=== PATIENT | male | born 1970 | race Caucasian/White ===

== ENCOUNTER 2016-08-31 14:22 | Inpatient (IN) ==
[2016-08-31 14:49] LABS: Basophils % 0.6 %; Hematocrit 36.9 % (37.5-50.1); Hemoglobin 12.7 g/dL (12.9-16.9); Immature Granulocytes % 0.8 % (0-4); Lymphocytes # 0.8 K/mcL (0.6-4.6); Lymphocytes % 12.4 %; Mean Corpuscular HGB Conc 34.4 g/dL (31.6-35.5); Mean Corpuscular Hemoglobin 33.2 pg (28.0-33.3); Mean Corpuscular Volume 96.6 fL (83.0-100.0); Mean Platelet Volume 9.8 fL (9.4-12.4); Monocytes # 0.9 K/mcL (0.0-1.3); Monocytes % 14.4 %; Neutrophils # 4.5 K/mcL (1.6-8.9); Platelet Count 122 K/mcL (140-400); Red Blood Count 3.82 M/mcL (4.19-5.50); Red Cell Distribution Width 11.8 % (11.5-14.5); Segmented Neutrophils % 71.8 %
--- NOTE | 2016-08-31 14:51 | Emergency Department Note ---
Disposition Clinical Impression: Melena GI bleed Qualifiers: GI bleed type/associated pathology: melena Qualified Code(s): K92.1 - Melena Disposition: Admitted As Inpatient Condition: Fair Time of Disposition: 17:04 Chest Pain HPI - General Chief Complaint: ED Chest Pain Stated Complaint: CP,Rectal bleed Time Seen by Provider: 08/31/16 14:30 Source: patient Limitations: no limitations Vital Signs Reviewed: Yes Nursing Notes Reviewed: Yes - History of Present Illness HPI Narrative: Patient is a 45-year-old male brought to [facility] ED with a chief complaint of chest pain. States he has had cold-like symptoms with a cough for the last few days. States he has had chest pain for approximately one week. Denies any nausea, vomiting, fever or chills. States he also noted his stool being dark tarry today. Patient admits to frequent alcohol use drinking 12-15 beers per day, recreational marijuana use, smoker. No prior history of myocardial infarction and states his last stress test was several years ago. Pt complaint: chest pain Onset (ago): week(s) Duration: constant Onset: during rest, during exertion Pain Location: substernal, left chest, right chest Severity: severe Severity scale (1-10): 9 Quality: aching Pain Radiation: none Improves with: nothing Worsens with: nothing Associated symptoms: Denies: nausea, vomiting, dyspnea Treatments prior to arrival chest pain: none - Related Data Home Medications Medication Instructions Recorded Confirmed Aspirin Enteric Coated [Aspirin EC] 81 mg PO DAILY 05/15/15 08/31/16 Warfarin [Coumadin] 2 mg PO QAM 05/15/15 08/31/16 Multivitamin [Multivitamins] 1 cap PO QAM 08/31/16 08/31/16 Allergies Allergy/AdvReac Type Severity Reaction Status Date / Time Oxycodone Allergy Itching Verified 08/31/16 16:24 All systems ED: reviewed and negative except as stated. Chest Pain PMH - Past Medical History Medical history: Reports: other Surgical history: Reports: other Psychiatric history: Reports: no psych history - Social History Smoking Status: Current every day smoker Alcohol use: Reports: heavy Drug use: Reports: marijuana Physical Exam - General Limitations: no limitations General appearance: alert, in no apparent distress, cachectic - Head Head exam: atraumatic, normocephalic, normal inspection - Eye Eye exam: Present: normal appearance, PERRL, EOMI - ENT ENT exam: normal exam, normal oropharynx, mucous membranes moist - Neck Neck exam: Present: normal inspection, full ROM, trachea midline - Chest Chest inspection: Present: normal inspection, symmetric chest wall rise - Respiratory Respiratory exam: Present: normal lung sounds bilaterally - Cardiovascular Cardiovascular exam: Present: normal rhythm, tachycardia - Abdominal Exam Abdominal exam: Present: soft, tenderness. Absent: distention, guarding, rebound, rigidity Abdominal tenderness: Present: epigastrium - Extremities Exam Extremities exam: Present: normal inspection, full ROM. Absent: tenderness, pedal edema - Back Exam Back exam: Present: normal inspection - Neurological Exam Neurological exam: Present: alert, oriented X3 - Psychiatric Psychiatric exam: Present: normal affect, normal mood - Skin Skin exam: Present: warm, dry, intact, normal color Course Course Narrative: Patient seen and examined. Chest pain along with black tarry stools. Rectal exam was performed and Hemoccult sample sent down to lab. Cardiopulmonary workup initiated. We will also give patient a dose of Protonix. Suspect possible ulcer with upper GI bleed. - Reevaluation(s) Reevaluation #1: Lab called with a critical elevated lactic acid over 4. IV fluids started. Patient's Hemoccult also came back as positive. 80 mg total of IV Protonix ordered. We will admit to hospitalist for GI bleed. I spoke with hospitalist Dr. Myers who has accepted patient for admission. She also would like a Protonix drip started. This was ordered. we did have a misunderstanding regarding the endoscopist. I believed that the hospitalist had asked me to talk with Dr. Swartz which I did. However she did end up changing her mind and I misunderstood her. She ended up calling Dr. Adames for consult instead. Time: 17:03 Vital Signs Temperature 97.9 F 08/31/16 14:29 Pulse Rate 102 08/31/16 14:29 Respiratory Rate 18 08/31/16 14:29 Blood Pressure 164/101 08/31/16 14:29 O2 Sat by Pulse Oximetry 100 08/31/16 14:29 Temperature 97.9 F 08/31/16 14:29 Pulse Rate 113 08/31/16 16:36 Respiratory Rate 16 08/31/16 16:55 Blood Pressure 130/80 08/31/16 16:55 O2 Sat by Pulse Oximetry 97 08/31/16 16:36 Oxygen Delivery Oxygen Delivery Room Air Chest Pain - Medical Records Medical records reviewed: Yes I reviewed the patient's medical records. - Lab Data Lab results reviewed: Yes I reviewed the patient's lab results. Result diagrams: 08/31/16 14:35 08/31/16 14:35 Lab Results 08/31/16 08/31/16 08/31/16 Range/Units 14:35 14:35 14:35 WBC (4.3-11.1) K/mcL RBC (4.19-5.50) M/mcL Hgb (12.9-16.9) g/dL Hct (37.5-50.1) % MCV (83.0-100.0) fL MCH (28.0-33.3) pg MCHC (31.6-35.5) g/dL RDW (11.5-14.5) % Plt Count (140-400) K/mcL MPV (9.4-12.4) fL Immature Gran % (0-4) % Seg Neutrophils % % Lymphocytes % % Monocytes % % Eosinophils % % Basophils % % Neutrophils # (1.6-8.9) K/mcL Lymphocytes # (0.6-4.6) K/mcL Monocytes # (0.0-1.3) K/mcL Eosinophils # (0.0-0.6) K/mcL Basophils # (0.0-0.2) K/mcL PT 40.6 H (9.4-12.1) Seconds INR 3.6 APTT 51.0 H (26.0-36.0) Seconds Sodium 129 L (136-145) mEq/L Potassium 3.4 L (3.5-4.5) mEq/L Chloride 90 L (98-109) mEq/L Carbon Dioxide 26 (19-29) mEq/L BUN 16 (8-26) mg/dL Creatinine 0.72 (0.72-1.25) mg/dL Est GFR ( Amer) > 60 (> 60) Est GFR (Non-Af Amer) > 60 (> 60) BUN/Creatinine Ratio 22 (6-26) Glucose 115 H (70-99) mg/dL Calculated Osmolality 270 L (280-300) Lactic Acid (0.5-2.2) mmol/L Calcium 9.6 (8.6-10.8) mg/dL Total Bilirubin 1.4 H (0.2-1.2) mg/dL Direct Bilirubin 0.5 (0.0-0.5) mg/dL Indirect Bilirubin 0.9 (0.0-1.2) mg/dL AST 74 H (5-34) Units/L ALT 40 (0-55) Units/L Alkaline Phosphatase 61 (38-126) Units/L Troponin I (0-0.03) ng/mL Serum Total Protein 7.7 (6.0-8.3) g/dL Albumin 3.9 (3.5-5.0) g/dL Globulin 3.8 H (2.4-3.5) g/dL Albumin/Globulin Ratio 1.0 L (1.1-2.2) Lipase 15 (8-78) Units/L Stool Occult Blood (Negative) Blood Type O POSITIVE Antibody Screen NEGATIVE 08/31/16 08/31/16 08/31/16 Range/Units 14:35 14:35 14:35 WBC 6.2 (4.3-11.1) K/mcL RBC 3.82 L (4.19-5.50) M/mcL Hgb 12.7 L (12.9-16.9) g/dL Hct 36.9 L (37.5-50.1) % MCV 96.6 (83.0-100.0) fL MCH 33.2 (28.0-33.3) pg MCHC 34.4 (31.6-35.5) g/dL RDW 11.8 (11.5-14.5) % Plt Count 122 L (140-400) K/mcL MPV 9.8 (9.4-12.4) fL Immature Gran % 0.8 (0-4) % Seg Neutrophils % 71.8 % Lymphocytes % 12.4 % Monocytes % 14.4 % Eosinophils % 0.0 % Basophils % 0.6 % Neutrophils # 4.5 (1.6-8.9) K/mcL Lymphocytes # 0.8 (0.6-4.6) K/mcL Monocytes # 0.9 (0.0-1.3) K/mcL Eosinophils # 0.0 (0.0-0.6) K/mcL Basophils # 0.0 (0.0-0.2) K/mcL PT (9.4-12.1) Seconds INR APTT (26.0-36.0) Seconds Sodium (136-145) mEq/L Potassium (3.5-4.5) mEq/L Chloride (98-109) mEq/L Carbon Dioxide (19-29) mEq/L BUN (8-26) mg/dL Creatinine (0.72-1.25) mg/dL Est GFR ( Amer) (> 60) Est GFR (Non-Af Amer) (> 60) BUN/Creatinine Ratio (6-26) Glucose (70-99) mg/dL Calculated Osmolality (280-300) Lactic Acid 4.2 H* (0.5-2.2) mmol/L Calcium (8.6-10.8) mg/dL Total Bilirubin (0.2-1.2) mg/dL Direct Bilirubin (0.0-0.5) mg/dL Indirect Bilirubin (0.0-1.2) mg/dL AST (5-34) Units/L ALT (0-55) Units/L Alkaline Phosphatase (38-126) Units/L Troponin I 0.01 (0-0.03) ng/mL Serum Total Protein (6.0-8.3) g/dL Albumin (3.5-5.0) g/dL Globulin (2.4-3.5) g/dL Albumin/Globulin Ratio (1.1-2.2) Lipase (8-78) Units/L Stool Occult Blood (Negative) Blood Type Antibody Screen 08/31/16 Range/Units 14:43 WBC (4.3-11.1) K/mcL RBC (4.19-5.50) M/mcL Hgb (12.9-16.9) g/dL Hct (37.5-50.1) % MCV (83.0-100.0) fL MCH (28.0-33.3) pg MCHC (31.6-35.5) g/dL RDW (11.5-14.5) % Plt Count (140-400) K/mcL MPV (9.4-12.4) fL Immature Gran % (0-4) % Seg Neutrophils % % Lymphocytes % % Monocytes % % Eosinophils % % Basophils % % Neutrophils # (1.6-8.9) K/mcL Lymphocytes # (0.6-4.6) K/mcL Monocytes # (0.0-1.3) K/mcL Eosinophils # (0.0-0.6) K/mcL Basophils # (0.0-0.2) K/mcL PT (9.4-12.1) Seconds INR APTT (26.0-36.0) Seconds Sodium (136-145) mEq/L Potassium (3.5-4.5) mEq/L Chloride (98-109) mEq/L Carbon Dioxide (19-29) mEq/L BUN (8-26) mg/dL Creatinine (0.72-1.25) mg/dL Est GFR ( Amer) (> 60) Est GFR (Non-Af Amer) (> 60) BUN/Creatinine Ratio (6-26) Glucose (70-99) mg/dL Calculated Osmolality (280-300) Lactic Acid (0.5-2.2) mmol/L Calcium (8.6-10.8) mg/dL Total Bilirubin (0.2-1.2) mg/dL Direct Bilirubin (0.0-0.5) mg/dL Indirect Bilirubin (0.0-1.2) mg/dL AST (5-34) Units/L ALT (0-55) Units/L Alkaline Phosphatase (38-126) Units/L Troponin I (0-0.03) ng/mL Serum Total Protein (6.0-8.3) g/dL Albumin (3.5-5.0) g/dL Globulin (2.4-3.5) g/dL Albumin/Globulin Ratio (1.1-2.2) Lipase (8-78) Units/L Stool Occult Blood Positive A (Negative) Blood Type Antibody Screen - Radiology Data Radiology results reviewed: Yes I reviewed the patient's radiology results. - EKG Data EKG attestation: Yes I reviewed and interpreted this EKG. EKG results narrative: EKG done at 1430 shows normal sinus rhythm with a rate of [address] elevation or depression. There is an inverted T-wave in lead 3. Normal axis.
[2016-08-31] MEDS ORDERED: Pantoprazole 40 MG VIAL IVP ONE ×2 (14:55→15:23)
[2016-08-31 15:00] LABS: INR 3.6; Prothrombin Time 40.6 Seconds (9.4-12.1)
[2016-08-31] MEDS ORDERED: 0.9 % Sodium Chloride 1,000 ML IVC ONE (15:02)
[2016-08-31 15:05] LABS: Alanine Aminotransferase 40 Units/L (0-55); Albumin 3.9 g/dL (3.5-5.0); Alkaline Phosphatase 61 Units/L (38-126); Aspartate Amino Transferase 74 Units/L (5-34); BUN/Creatinine Ratio 22 (6-26); Bilirubin,Direct 0.5 mg/dL (0.0-0.5); Bilirubin,Indirect 0.9 mg/dL (0.0-1.2); Bilirubin,Total 1.4 mg/dL (0.2-1.2); Blood Urea Nitrogen 16 mg/dL (8-26); Calcium 9.6 mg/dL (8.6-10.8); Carbon Dioxide 26 mEq/L (19-29); Chloride 90 mEq/L (98-109); Globulin 3.8 g/dL (2.4-3.5); Glucose 115 mg/dL (70-99); Lipase 15 Units/L (8-78); Osmolality,Calculated 270 (280-300); Potassium 3.4 mEq/L (3.5-4.5); Sodium 129 mEq/L (136-145); Total Protein 7.7 g/dL (6.0-8.3); eGFR For African Americans > 60 (> 60); eGFR For Non-African Americans > 60 (> 60)
[2016-08-31] MEDS ORDERED: Pantoprazole 40 MG in 0.9 % Sodium Chloride Mini Bag 100 ML IVC SCH ×2 (16:00→17:30)
--- NOTE | 2016-08-31 16:17 | Emergency Department Note ---
Disposition Clinical Impression: Melena, GI bleed Disposition: Admitted As Inpatient Condition: Serious General Adult HPI - General Chief complaint: ED Chest Pain Stated complaint: CP,Rectal bleed Time Seen by Provider: 08/31/16 14:30 Source: patient Limitations: no limitations - History of Present Illness Pain Scale: 0 - Related Data Home Medications Medication Instructions Recorded Confirmed Aspirin Enteric Coated [Aspirin EC] 81 mg PO DAILY 05/15/15 08/31/16 Warfarin [Coumadin] 2 mg PO QAM 05/15/15 08/31/16 Multivitamin [Multivitamins] 1 cap PO QAM 08/31/16 08/31/16 Allergies Allergy/AdvReac Type Severity Reaction Status Date / Time Oxycodone Allergy Itching Verified 08/31/16 16:24 Past Medical History - Past Medical History Medical history: Reports: other Surgical history: Reports: other Psychiatric history: Reports: no psych history - Social History Smoking Status: Current every day smoker Smokeless Tobacco Status: No Alcohol use: Reports: heavy Drug use: Reports: marijuana Physical Exam - General Limitations: no limitations General appearance: alert, in no apparent distress, cachectic Course - Reevaluation(s) Reevaluation #1: I saw the patient with the resident, Dr. Kam. Patient presented with complaint of upper abdominal and lower chest discomfort and then also reports lack stools today. Although his chest pain was not reproducible to palpation, it was aggravated by having him rotate his body only on one side versus the other. Lungs sounded fine. Belly was nontender. Stool was guaiac positive. He is hemodynamically stable and has good vital signs except for tachycardia. Concern here is for upper GI bleed. We will be admitting the patient to the hospital for further evaluation. Time: 16:16 Vital Signs Temperature 97.9 F 08/31/16 14:29 Pulse Rate 102 08/31/16 14:29 Respiratory Rate 18 08/31/16 14:29 Blood Pressure 164/101 08/31/16 14:29 O2 Sat by Pulse Oximetry 100 08/31/16 14:29 Temperature 98.4 F 09/02/16 07:54 Pulse Rate 93 09/02/16 07:54 Respiratory Rate 17 09/02/16 07:54 Blood Pressure 136/83 09/02/16 07:54 O2 Sat by Pulse Oximetry 98 09/02/16 07:54 Oxygen Delivery Oxygen Delivery Room Air Medical Decision Making - Lab Data Result diagrams: 09/02/16 04:21 09/02/16 04:21 Lab Results 08/31/16 08/31/16 08/31/16 Range/Units 14:35 14:35 14:35 WBC (4.3-11.1) K/mcL RBC (4.19-5.50) M/mcL Hgb (12.9-16.9) g/dL Hct (37.5-50.1) % MCV (83.0-100.0) fL MCH (28.0-33.3) pg MCHC (31.6-35.5) g/dL RDW (11.5-14.5) % Plt Count (140-400) K/mcL MPV (9.4-12.4) fL Immature Gran % (0-4) % Seg Neutrophils % % Lymphocytes % % Monocytes % % Eosinophils % % Basophils % % Neutrophils # (1.6-8.9) K/mcL Lymphocytes # (0.6-4.6) K/mcL Monocytes # (0.0-1.3) K/mcL Eosinophils # (0.0-0.6) K/mcL Basophils # (0.0-0.2) K/mcL PT 40.6 H (9.4-12.1) Seconds INR 3.6 APTT 51.0 H (26.0-36.0) Seconds Sodium 129 L (136-145) mEq/L Potassium 3.4 L (3.5-4.5) mEq/L Chloride 90 L (98-109) mEq/L Carbon Dioxide 26 (19-29) mEq/L BUN 16 (8-26) mg/dL Creatinine 0.72 (0.72-1.25) mg/dL Est GFR ( Amer) > 60 (> 60) Est GFR (Non-Af Amer) > 60 (> 60) BUN/Creatinine Ratio 22 (6-26) Glucose 115 H (70-99) mg/dL Calculated Osmolality 270 L (280-300) Lactic Acid (0.5-2.2) mmol/L Calcium 9.6 (8.6-10.8) mg/dL Phosphorus 3.2 (2.3-4.7) mg/dL Magnesium 1.8 (1.6-2.6) mg/dL Total Bilirubin 1.4 H (0.2-1.2) mg/dL Direct Bilirubin 0.5 (0.0-0.5) mg/dL Indirect Bilirubin 0.9 (0.0-1.2) mg/dL AST 74 H (5-34) Units/L ALT 40 (0-55) Units/L Alkaline Phosphatase 61 (38-126) Units/L Troponin I (0-0.03) ng/mL Serum Total Protein 7.7 (6.0-8.3) g/dL Albumin 3.9 (3.5-5.0) g/dL Globulin 3.8 H (2.4-3.5) g/dL Albumin/Globulin Ratio 1.0 L (1.1-2.2) Amylase 42 (25-125) Units/L Lipase 15 (8-78) Units/L TSH 2.201 (0.350-4.840) mcIU/mL Stool Occult Blood (Negative) Hepatitis A IgM Ab (Nonreactive) Hep Bs Antigen (Nonreactive) Hep B Core IgM Ab (Nonreactive) Hepatitis C Ab Screen (Nonreactive) HIV Ag/Ab Combo Qual (Nonreactive) Blood Type O POSITIVE Antibody Screen NEGATIVE 08/31/16 08/31/16 08/31/16 Range/Units 14:35 14:35 14:35 WBC 6.2 (4.3-11.1) K/mcL RBC 3.82 L (4.19-5.50) M/mcL Hgb 12.7 L (12.9-16.9) g/dL Hct 36.9 L (37.5-50.1) % MCV 96.6 (83.0-100.0) fL MCH 33.2 (28.0-33.3) pg MCHC 34.4 (31.6-35.5) g/dL RDW 11.8 (11.5-14.5) % Plt Count 122 L (140-400) K/mcL MPV 9.8 (9.4-12.4) fL Immature Gran % 0.8 (0-4) % Seg Neutrophils % 71.8 % Lymphocytes % 12.4 % Monocytes % 14.4 % Eosinophils % 0.0 % Basophils % 0.6 % Neutrophils # 4.5 (1.6-8.9) K/mcL Lymphocytes # 0.8 (0.6-4.6) K/mcL Monocytes # 0.9 (0.0-1.3) K/mcL Eosinophils # 0.0 (0.0-0.6) K/mcL Basophils # 0.0 (0.0-0.2) K/mcL PT (9.4-12.1) Seconds INR APTT (26.0-36.0) Seconds Sodium (136-145) mEq/L Potassium (3.5-4.5) mEq/L Chloride (98-109) mEq/L Carbon Dioxide (19-29) mEq/L BUN (8-26) mg/dL Creatinine (0.72-1.25) mg/dL Est GFR ( Amer) (> 60) Est GFR (Non-Af Amer) (> 60) BUN/Creatinine Ratio (6-26) Glucose (70-99) mg/dL Calculated Osmolality (280-300) Lactic Acid 4.2 H* (0.5-2.2) mmol/L Calcium (8.6-10.8) mg/dL Phosphorus (2.3-4.7) mg/dL Magnesium (1.6-2.6) mg/dL Total Bilirubin (0.2-1.2) mg/dL Direct Bilirubin (0.0-0.5) mg/dL Indirect Bilirubin (0.0-1.2) mg/dL AST (5-34) Units/L ALT (0-55) Units/L Alkaline Phosphatase (38-126) Units/L Troponin I 0.01 (0-0.03) ng/mL Serum Total Protein (6.0-8.3) g/dL Albumin (3.5-5.0) g/dL Globulin (2.4-3.5) g/dL Albumin/Globulin Ratio (1.1-2.2) Amylase (25-125) Units/L Lipase (8-78) Units/L TSH (0.350-4.840) mcIU/mL Stool Occult Blood (Negative) Hepatitis A IgM Ab (Nonreactive) Hep Bs Antigen (Nonreactive) Hep B Core IgM Ab (Nonreactive) Hepatitis C Ab Screen (Nonreactive) HIV Ag/Ab Combo Qual (Nonreactive) Blood Type Antibody Screen 08/31/16 08/31/1608/31/17 Range/Units 14:35 14:35 14:43 WBC (4.3-11.1) K/mcL RBC (4.19-5.50) M/mcL Hgb (12.9-16.9) g/dL Hct (37.5-50.1) % MCV (83.0-100.0) fL MCH (28.0-33.3) pg MCHC (31.6-35.5) g/dL RDW (11.5-14.5) % Plt Count (140-400) K/mcL MPV (9.4-12.4) fL Immature Gran % (0-4) % Seg Neutrophils % % Lymphocytes % % Monocytes % % Eosinophils % % Basophils % % Neutrophils # (1.6-8.9) K/mcL Lymphocytes # (0.6-4.6) K/mcL Monocytes # (0.0-1.3) K/mcL Eosinophils # (0.0-0.6) K/mcL Basophils # (0.0-0.2) K/mcL PT (9.4-12.1) Seconds INR APTT (26.0-36.0) Seconds Sodium (136-145) mEq/L Potassium (3.5-4.5) mEq/L Chloride (98-109) mEq/L Carbon Dioxide (19-29) mEq/L BUN (8-26) mg/dL Creatinine (0.72-1.25) mg/dL Est GFR ( Amer) (> 60) Est GFR (Non-Af Amer) (> 60) BUN/Creatinine Ratio (6-26) Glucose (70-99) mg/dL Calculated Osmolality (280-300) Lactic Acid (0.5-2.2) mmol/L Calcium (8.6-10.8) mg/dL Phosphorus (2.3-4.7) mg/dL Magnesium (1.6-2.6) mg/dL Total Bilirubin (0.2-1.2) mg/dL Direct Bilirubin (0.0-0.5) mg/dL Indirect Bilirubin (0.0-1.2) mg/dL AST (5-34) Units/L ALT (0-55) Units/L Alkaline Phosphatase (38-126) Units/L Troponin I (0-0.03) ng/mL Serum Total Protein (6.0-8.3) g/dL Albumin (3.5-5.0) g/dL Globulin (2.4-3.5) g/dL Albumin/Globulin Ratio (1.1-2.2) Amylase (25-125) Units/L Lipase (8-78) Units/L TSH (0.350-4.840) mcIU/mL Stool Occult Blood Positive A (Negative) Hepatitis A IgM Ab Nonreactive (Nonreactive) Hep Bs Antigen Nonreactive (Nonreactive) Hep B Core IgM Ab Nonreactive (Nonreactive) Hepatitis C Ab Screen Nonreactive (Nonreactive) HIV Ag/Ab Combo Qual Nonreactive (Nonreactive) Blood Type Antibody Screen Attestation Statement - Attestation Attestation: I, Dr. Horowitz, examined this patient [id number] and my medical decision- making was reviewed with Dr. Kam, Resident Physician. I agree with the documented findings, disposition and treatment plan as described except to the extent set forth below. Please see my progress notes for details.
[2016-08-31] MEDS ORDERED: Ondansetron 4 MG/2 ML VIAL IVP PRN (17:06)
[2016-08-31] MEDS ORDERED: Naloxone 0.4 MG/ML INJ IVP PRN (17:06)
[2016-08-31] MEDS ORDERED: *HR* LORazepam 2 MG/ML VIAL IVP PRN ×3 (17:10)
--- NOTE | 2016-08-31 17:38 | Internal Med History&Physical ---
<Stephen Sears P - Last Filed: 08/31/16 18:39> Date of Encounter: 08/31/16 Internal Medicine - H&P: HPI History of present illness: Mr. Bell is a 45 year old male Internal Medicine - H&P: Meds Aspirin Enteric Coated [Aspirin EC] 81 mg PO DAILY 05/15/15 [History] Warfarin [Coumadin] 2 mg PO QAM 05/15/15 [History] Multivitamin [Multivitamins] 1 cap PO QAM 08/31/16 [History] Allergies Oxycodone Allergy (Verified 08/31/16 16:24) Itching All Systems PM: A 10-system review of systems was performed and is negative for pertinent findings except as documented above in the HPI. - Constitutional Vitals: Temp Pulse Resp BP Pulse Ox 98.6 F 89 16 145/90 92 L 08/31/16 17:20 08/31/16 17:20 08/31/16 17:20 08/31/16 17:20 08/31/16 17:20 Internal Med - H&P Results - Labs CBC & Chem 7: 08/31/16 14:35 08/31/16 14:35 - Attending Attestation I examined this patient and my medical decision-making was reviewed with the [employer]/PA/Advanced Practice Nurse/Resident Physician. I agree with the documented findings, disposition and treatment plan as described except to the extent set forth below. 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 Patients hgb is 12, INR is 3.6, +stool gauiac. Patient is on pantoprazole IV, IVF. Dr. Swartz is consulted. Patient was given 5mg Vitamin K IV for warfarin reversal. Check Hg/Hct and INR at 9. CBC CMP, PT/INR in morning. Qualifiers: GI bleed type/associated pathology: unspecified gastrointestinal hemorrhage type Qualified Code(s): K92.2 - Gastrointestinal hemorrhage, unspecified (2) Chronic alcoholism Current visit: Yes Status: Acute hx of drinking 12 beers a day. ON ciwa protocol and banana bag. Hx of getting unsafe tattoos and marijuana use. Will get HIV and hepatitis panel and urine drug screen. (3) DVT prophylaxis Current visit: Yes Status: Acute (4) Melena Current visit: Yes Status: Acute Internal Medicine - H&P: HPI Chief complaint: Chest pain Admitted From: Home Plans for Post Hospital Care: Home History of present illness: Mr. 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 CP is getting progressively worse over the week. Today he had two bouts of melena. He denies hemetemesis. Patients INR was 3.6 on admission. He reciebed pantoprazole and IVF in ER. Initial Hgb is 12. He denies BRB per rectum. He denies use of IV drugs. 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 Denies previous hx of HIV and hepatitis. Lipase, amylase, tsh, troponin wnl. Past Med Surg Social Fam HX - Past Medical History Medical history: other Psychiatric history: no psych history - Past Surgical History Surgical History: other - Social History Smoking Status: Current every day smoker Smokeless Tobacco Status: No Alcohol use: heavy Drug use: marijuana - Family History Father Living Status: (46) Hx Family Cardiac Disorders: Yes (PR) All Systems PM: A 10-system review of systems was performed and is negative for pertinent findings except as documented above in the HPI. - Constitutional Constitutional: chills, excessive sweating, fatigue, night sweats, weight loss, no fever(s) - EENT Eyes: no change in vision, no discharge, no pain, no photophobia Ears: no ear discharge, no ear pain, no tinnitus Nose, mouth and throat: nasal congestion, nasal discharge, no dysphagia, no neck pain, no sore throat - Cardiovascular Cardiovascular ROS IM: chest pain (substernal), diaphoresis, no dyspnea, no lightheadedness, no palpitations, no syncope - Respiratory Respiratory: no cough, no dyspnea, no wheezing, no excessive phlegm production - Gastrointestinal Gastrointestinal: change in stool character, melena, nausea, vomiting, no abdominal pain, no coffee ground emesis, no diarrhea, no hematemesis, no hematochezia - Genitourinary Genitourinary ROS male: no difficulty urinating, no dysuria, no urinary frequency - Musculoskeletal Musculoskeletal ROS IM: no numbness, no tingling - Integumentary Integumentary IM: no rash, no unusual bruising - Neurological Neurological ROS: no confusion, no convulsions, no focal weakness, no numbness, no tingling, no tremor(s) - Hematologic/Lymphatic Hematologic/Lymphatic: no easy bruising - Constitutional Vitals: Temp Pulse Resp BP Pulse Ox 98.6 F 89 16 145/90 92 L 08/31/16 17:20 08/31/16 17:20 08/31/16 17:20 08/31/16 17:20 08/31/16 17:20 General appearance: Present: A&O X 3, answers questions appropriately - Head Head exam: Present: atraumatic, normocephalic - Eye Eye exam: Present: EOMI, PERRL, conjuntiva pink, sclera anicteric - Neck Neck exam general surgery: Present: supple, trachea midline. Absent: lymphadenopathy - Respiratory Respiratory exam: Present: CTAB. Absent: accessory muscle use, rales, rhonchi, wheezes - Cardiovascular Cardiovascular exam: Present: RRR, +S1, +S2, tachycardia. Absent: diastolic murmur, gallop, rubs, systolic murmur - GI/Abdominal GI/Abdominal exam: Present: normal bowel sounds, soft, no peritoneal signs. Absent: distended, tenderness - Extremities Exam Extremities exam: Present: warm, radial pulses palpable and symetrical. Absent : calf tenderness, cyanotic, pedal edema Additional comments: Patient has Left lower extremity amputation above knee - Neurological Exam Neurological exam: Present: CN II-XII intact, oriented X3, no focal deficits. Absent: pronater drift, facial droop, speech deficit - Skin Skin exam: Present: erythema (upper chest and neck flushing ), intact Internal Med - H&P Results - Labs CBC & Chem 7: 08/31/16 14:35 08/31/16 14:35 - EKG Data EKG shows normal: sinus rhythm Rate: tachycardia - EKG Data Prior EKG available for review: no - Diagnostic Studies Chest x-ray Status: image reviewed by me
[2016-08-31 17:48] LABS: Amylase 42 Units/L (25-125); Magnesium 1.8 mg/dL (1.6-2.6); Phosphorous 3.2 mg/dL (2.3-4.7)
[2016-08-31 18:11] LABS: Thyroid Stimulating Hormone 2.201 mcIU/mL (0.350-4.840)
[2016-08-31] MEDS: 0.9 % Sodium Chloride 1,000 ML IVC SCH (19:00)
[2016-08-31 21:13] LABS: Hemoglobin 10.6 g/dL (12.9-16.9)
[2016-08-31 21:16] LABS: INR 2.7; Prothrombin Time 29.5 Seconds (9.4-12.1)
[2016-08-31 21:26] LABS: Amphetamine Screen,Urine Negative ng/mL (Cutoff=1000); Barbiturate Screen,Urine Negative ng/mL (Cutoff=200); Benzodiazepines Screen,Urine Negative ng/mL (Cutoff=200); Cannabinoid Screen,Urine Positive ng/mL (Cutoff = 50); Cocaine Screen,Urine Negative ng/mL (Cutoff= 300); Opiate Screen,Urine Negative ng/mL (Cutoff=300); Phencyclidine Screen,Urine Negative ng/mL (Cutoff=25)
[2016-09-01 05:17] LABS: INR 1.3; Prothrombin Time 14.3 Seconds (9.4-12.1)
[2016-09-01 05:18] LABS: Activated Partial Thrombo Time 34.6 Seconds (26.0-36.0)
[2016-09-01 05:45] LABS: Alanine Aminotransferase 27 Units/L (0-55); Albumin/Globulin Ratio 1.1 (1.1-2.2); Alkaline Phosphatase 43 Units/L (38-126); Aspartate Amino Transferase 49 Units/L (5-34); BUN/Creatinine Ratio 20 (6-26); Bilirubin,Total 1.7 mg/dL (0.2-1.2); Blood Urea Nitrogen 13 mg/dL (8-26); Calcium 8.8 mg/dL (8.6-10.8); Carbon Dioxide 25 mEq/L (19-29); Chloride 103 mEq/L (98-109); Chol/HDL Ratio 1.9 (0-4.9); Cholesterol 178 mg/dL (< 200); Globulin 2.8 g/dL (2.4-3.5); Glucose 83 mg/dL (70-99); HDL Cholesterol 92 mg/dL (40-59); LDL Cholesterol,Calculated 77 mg/dL (0-99); Osmolality,Calculated 281 (280-300); Potassium 3.3 mEq/L (3.5-4.5); Triglycerides 47 mg/dL (< 150); eGFR For African Americans > 60 (> 60); eGFR For Non-African Americans > 60 (> 60)
[2016-09-01 06:01] LABS: Albumin 3.1 g/dL (3.5-5.0); Basophils % 0.9 %; Eosinophils % 0.6 %; Hemoglobin 10.2 g/dL (12.9-16.9); Immature Granulocytes % 0.3 % (0-4); Lymphocytes # 0.9 K/mcL (0.6-4.6); Lymphocytes % 28.4 %; Mean Corpuscular HGB Conc 35.2 g/dL (31.6-35.5); Mean Corpuscular Hemoglobin 34.1 pg (28.0-33.3); Mean Platelet Volume 10.7 fL (9.4-12.4); Monocytes # 0.4 K/mcL (0.0-1.3); Monocytes % 12.7 %; Neutrophils # 1.9 K/mcL (1.6-8.9); Platelet Count 101 K/mcL (140-400); Red Blood Count 2.99 M/mcL (4.19-5.50); Red Cell Distribution Width 11.9 % (11.5-14.5); Segmented Neutrophils % 57.1 %; Sodium 136 mEq/L (136-145); Total Protein 5.9 g/dL (6.0-8.3)
[2016-09-01] MEDS: Pantoprazole 40 MG VIAL IVP SCH ×2 (06:36→18:00)
[2016-09-01] MEDS: 0.9 % Sodium Chloride 1,000 ML IVC SCH ×2 (06:43→21:29)
--- NOTE | 2016-09-01 09:07 | Internal Med Progress Note ---
<Hao Coffey - Last Filed: 09/01/16 13:34> Date of Encounter: 09/01/16 Time of Encounter: 09:05 - Assessment and plan (1) GI bleed Current Visit: Yes Status: Acute Assessment and plan: Overnight patient had 2 black tarry bowel movements. He underwent endoscopy today Which showed gastritis, esophagitis, irregular Z line. Biopsies were taken. Patient's hemoglobin and hematocrit has been stable overnight. Continue pantoprazole, IV fluids. Qualifiers: GI bleed type/associated pathology: unspecified gastrointestinal hemorrhage type Qualified Code(s): K92.2 - Gastrointestinal hemorrhage, unspecified (2) Chronic alcoholism Current Visit: Yes Status: Acute Assessment and plan: Continue serial protocol. Continue banana bag. (3) DVT prophylaxis Current Visit: Yes Status: Acute Assessment and plan: IPCs (4) Melena Current Visit: Yes Status: Acute Assessment and plan: Plan as above. (5) Supratherapeutic INR Current Visit: Yes Status: Acute Assessment and plan: Patient is on warfarin for multiple history of thrombosis in the left upper extremity. During admission he was supratherapeutic on his warfarin. This is her first by vitamin K. Today's INR is 1.3. - Subjective Interval history: Patient had 2 black tarry bowel movements overnight. His repeat hemoglobin decreased from 12 to 10.6 last night and this morning his hemoglobin is 10.2. He will undergo upper endoscopy today. He denies chest pain, shortness of breath. He admits to being nauseous. - Constitutional Vitals: Temp Pulse Resp BP Pulse Ox 98.0 F 89 16 134/79 98 09/01/16 07:53 09/01/16 07:53 09/01/16 07:53 09/01/16 07:53 09/01/16 07:53 General appearance: Present: A&O X 3, answers questions appropriately - Respiratory Respiratory exam: Present: CTAB. Absent: accessory muscle use, rales, rhonchi, wheezes - Cardiovascular Cardiovascular exam: Present: RRR, +S1, +S2. Absent: diastolic murmur, gallop, rubs, systolic murmur - GI/Abdominal GI/Abdominal exam: Present: normal bowel sounds, soft, no peritoneal signs. Absent: distended, tenderness - Extremities Exam Extremities exam: Present: warm, radial pulses palpable and symetrical. Absent : calf tenderness, cyanotic, pedal edema - Psychiatric Psychiatric exam: Present: anxious Internal Medicine: Result - Labs CBC & Chem 7: 09/01/16 04:42 09/01/16 04:42 Labs: Short CBC 08/31/16 09/01/16 Range/Units 20:34 04:42 WBC 3.2 L (4.3-11.1) K/mcL Hgb 10.6 L D 10.2 L (12.9-16.9) g/dL Hct 30.0 L 29.0 L (37.5-50.1) % Plt Count 101 L (140-400) K/mcL Neutrophils # 1.9 (1.6-8.9) K/mcL BMP 09/01/16 04:42 Sodium 136 D Potassium 3.3 L Chloride 103 Carbon Dioxide 25 BUN 13 Creatinine 0.65 L Glucose 83 Calcium 8.8 Cardiac Enzymes 08/31/16 09/01/16 Range/Units 20:34 04:42 Troponin I 0.01 0.01 (0-0.03) ng/mL Liver Function 09/01/16 Range/Units 04:42 Total Bilirubin 1.7 H (0.2-1.2) mg/dL AST 49 H (5-34) Units/L ALT 27 (0-55) Units/L Alkaline Phosphatase 43 (38-126) Units/L Albumin 3.1 L D (3.5-5.0) g/dL - ABG Interpretation ABG results: PT/INR, D-dimer PT 14.3 Seconds (9.4-12.1) H D 09/01/16 04:42 Consult Discharge Plan - Plan Referrals: Alyssia Villanueva, [facility] [employer] [Primary Care Provider] - <Stephen Sears - Last Filed: 09/01/16 18:35> - Constitutional Vitals: Temp Pulse Resp BP Pulse Ox 98.6 F 84 16 152/76 96 09/01/16 15:42 09/01/16 15:42 09/01/16 15:42 09/01/16 15:42 09/01/16 15:42 Internal Medicine: Result - Labs CBC & Chem 7: 09/01/16 04:42 09/01/16 04:42 Labs: Short CBC 08/31/16 09/01/16 Range/Units 20:34 04:42 WBC 3.2 L (4.3-11.1) K/mcL Hgb 10.6 L D 10.2 L (12.9-16.9) g/dL Hct 30.0 L 29.0 L (37.5-50.1) % Plt Count 101 L (140-400) K/mcL Neutrophils # 1.9 (1.6-8.9) K/mcL BMP 09/01/16 04:42 Sodium 136 D Potassium 3.3 L Chloride 103 Carbon Dioxide 25 BUN 13 Creatinine 0.65 L Glucose 83 Calcium 8.8 Cardiac Enzymes 08/31/16 09/01/16 Range/Units 20:34 04:42 Troponin I 0.01 0.01 (0-0.03) ng/mL Liver Function 09/01/16 Range/Units 04:42 Total Bilirubin 1.7 H (0.2-1.2) mg/dL AST 49 H (5-34) Units/L ALT 27 (0-55) Units/L Alkaline Phosphatase 43 (38-126) Units/L Albumin 3.1 L D (3.5-5.0) g/dL - ABG Interpretation ABG results: PT/INR, D-dimer PT 14.3 Seconds (9.4-12.1) H D 09/01/16 04:42 - Attending Attestation I examined this patient and my medical decision-making was reviewed with the DRIVER SUPERVISOR/PA/Advanced Practice Nurse/Resident Physician. I agree with the documented findings, disposition and treatment plan as described except to the extent set forth below. Surgery input appreciated and we will follow the recommendation.
[2016-09-01] MEDS: Thiamine (B-1) 100 MG in 0.9 % Sodium Chloride 50 ML IVPB SCH (10:07)
--- NOTE | 2016-09-01 10:37 | ECHO - Doppler Report ---
Echocardiogram Name: Michael Bell Date of Study: 09/01/2016 Date: 1970 Ht: 71.0 in Medical Record#: [id number] Age: 45 Wt: 105.0 lb Gender: Male BSA: 1.6 Order #: [id number] Location: [facility] Room #: 3B14 Reading Physician: Zacarias Gonzalez DO, NOE HUGHES FASNC Director Trade: Roman Rollins RN Ordering Physician: Hao Coffey DO Primary Physician: Alyssia Villanueva CNP Indications: Chest pain Impressions: LVEF 60-65%. Normal LV chamber size, wall thickness and function. Mild left ventricular diastolic dysfunction. Normal right ventricular structure and function. No evidence of pulmonary hypertension. No significant valvular dysfunction. Left Ventricular Wall Motion: Rest Echo Findings All wall segments showed normal motion. Findings: Study Quality * Technically adequate exam. ECG Findings * Normal sinus rhythm. Left Ventricle * LVEF 60-65%. * Normal LV chamber size, wall thickness and function. * Mild left ventricular diastolic dysfunction. Right Ventricle * Normal right ventricular structure and function. Left Atrium * Mildly dilated left atrium. Right Atrium * Normal right atrial size. Interatrial Septum * No evidence of PFO by color Doppler. Aortic Valve * Trileaflet aortic valve. * Mild aortic regurgitation. * No aortic stenosis. Mitral Valve * Mildly thickened mitral valve leaflets. * Trace mitral regurgitation. * No mitral stenosis. Tricuspid Valve * Normal tricuspid valve structure and function. * Trace tricuspid regurgitation. * No evidence of pulmonary hypertension. Pulmonic Valve * Normal pulmonic valve structure and function. * No pulmonic regurgitation. Aorta * Normally sized aortic root. Pericardium * The pericardium appears normal. IVC * Normal IVC dimensions and inspiratory collapse. Pulmonary Artery * Normal visualized portions of the main pulmonary artery. History History of Smoking Years 30 Packs 1.5 Family History of CAD Measurements: BP: 134/ 79 2D Normal Values RVIDd: 2.20 cm <2.7 cm IVSd: 1.00 cm 0.6 - 1.0 cm LVIDd: 4.70 cm 3.7 - 5.6 cm LVPWd: 1.00 cm 0.6 - 1.1 cm LVIDs: 2.70 cm 1.5 - 3.6 cm LA: 2.90 cm 2.0 - 4.0cm %FS: 42.60 cm >25 % LVOT Diam: 2.00 cm LA volume: 39 Mitral Valve Peak E:.57 m/sec Peak A:.67 m/sec E/A Ratio:0.9 Peak E' Lat Claus:13.1 cm/s Peak E' Med Claus:9.46 cm/s E/E' Lat Ratio:4.4 E/E' Med Ratio:6.1 Aortic Valve AI pressure Half-time: 515.00 msec Tricuspid Valve TV Regurg Peak Grad: 18.00mmHg TV Regurg Peak Claus: 2.10m/sec Updated by Zacarias Gonzalez DO, SAUL, BERENICE LIU on 09/01/2016 10:34:03 AM electronically signed on 09/01/2016 10:34:36 AM with status of Final Wall Motion Ramirez: 1=Normal, 2=Hypokinesis, 3=Akinesis, 4=Dyskinesis, 5=Aneurysmal, 6=Hyperkinetic, X=Not Visualized (Blank)=Missing
[2016-09-01 11:15] LABS: Hepatitis A Antibody IgM Nonreactive (Nonreactive); Hepatitis B Core IgM Nonreactive (Nonreactive); Hepatitis B Surface Antigen Nonreactive (Nonreactive); Hepatitis C Virus Antibody Nonreactive (Nonreactive)
--- NOTE | 2016-09-01 12:37 | General Surgery Consult Note ---
Date of Encounter: 09/01/16 Time of Encounter: 12:20 History of Present Illness Consult date: 09/01/16 Requesting physician: Hao Coffey History of present illness: 45 yo admitted for further and care after presenting to the [facility] ED with a one- week history of chest pain. No associated nausea, vomiting, fevers, or chills reported. Patient has noted that he has had black tarry stools for the past several days. He has a significant history of alcohol abuse, tobacco abuse and recreational marijuana use. 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 PT was 40.6, INR was 3.6 consistent with a supratherapeutic Coumadin level. Past medical history: Chronic anticoagulation due to left upper extremity screening ischemia; status post left above-knee amputation The patient denies any history of hypertension, diabetes, cardiac, renal, or pulmonary disease Surgical history: Multiple procedures on the left upper extremity as described in the history of present illness; left above-knee amputation Allergies: Percocet Medications: Aspirin 81 mg by mouth daily Coumadin 2 mg by mouth every morning Multivitamin 1 by mouth daily Social history: Smoker, one half packs a day for greater than 30 years; 12-16 beers daily - also for a prolonged period of time; recreational marijuana use ( almost daily) Physical examination: Thin male who appears older than his stated age. He is presently in no acute distress, resting comfortably in his hospital He is mildly icteric; he has multiple cutaneous tattoos. The patient has been afebrile since admission, currently 98.8; pulse 87, respirations 16, blood pressure 168/86. Lungs: Clear to auscultation though diminished bibasilar breath sounds are noted Cardiac: Regular rate, no appreciable murmurs Abdomen: Soft, nondistended, nontender. No obvious intra-abdominal masses. Impression: 45-year-old male admitted after presenting to the [facility] ED with a one -week history of chest pain and melena. Initial Hgb/Hct 12.7/36.9 with repeat decreased to 10.6/30.0 Chronic anticoagulation with supra therapeutic levels. The anticoagulation has been reversed/improved to 14.3/1.3. Significant history alcohol abuse - esophageal varicies are a potential etiology for the suspected UGI bleed. Significant history tobacco abuse Plan: EGD to assess upper GI tract Discussed procedure with patient and his sister, who was in attendance at bedside. Risks include hemorrhage, infection, aspiration, cramping abdominal pain, bloating and perforation. Variceal bleed can be life- threatening. Resources to treat a variceal bleed are extremely limited at [facility]. Should they be diagnosed or bleeding is determined to be a result of esophageal varicies - transfer to a [facility] may become necessary. Past Med Surg Social Fam HX - Past Medical History Medical history: other Psychiatric history: no psych history - Past Surgical History Surgical History: other - Social History Smoking Status: Current every day smoker Smokeless Tobacco Status: No Alcohol use: heavy Drug use: marijuana - Family History Father Living Status: (46) Hx Family Cardiac Disorders: Yes ([place]) Medications and Allergies Aspirin Enteric Coated [Aspirin EC] 81 mg PO DAILY 05/15/15 [History] Warfarin [Coumadin] 2 mg PO QAM 05/15/15 [History] Multivitamin [Multivitamins] 1 cap PO QAM 08/31/16 [History] Allergies Oxycodone Allergy (Verified 08/31/16 16:24) Itching Review of Systems All systems PM: A 10-system review of systems was performed and is negative for pertinent findings except as documented above in the HPI. General Surgery Exam Initial Vital Signs Temp Pulse Resp BP Pulse Ox 97.9 F 102 18 164/101 100 08/31/16 14:29 08/31/16 14:29 08/31/16 14:29 08/31/16 14:29 08/31/16 14:29 Exam Initial Vital Signs Temp Pulse Resp BP Pulse Ox 97.9 F 102 18 164/101 100 08/31/16 14:29 08/31/16 14:29 08/31/16 14:29 08/31/16 14:29 08/31/16 14:29 Results - Labs 09/01/16 04:42 09/01/16 04:42 Abnormal lab results WBC 3.2 K/mcL (4.3-11.1) L 09/01/16 04:42 RBC 2.99 M/mcL (4.19-5.50) L 09/01/16 04:42 Hgb 10.2 g/dL (12.9-16.9) L 09/01/16 04:42 Hct 29.0 % (37.5-50.1) L 09/01/16 04:42 MCH 34.1 pg (28.0-33.3) H 09/01/16 04:42 Plt Count 101 K/mcL (140-400) L 09/01/16 04:42 PT 14.3 Seconds (9.4-12.1) H D 09/01/16 04:42 Potassium 3.3 mEq/L (3.5-4.5) L 09/01/16 04:42 Creatinine 0.65 mg/dL (0.72-1.25) L 09/01/16 04:42 Lactic Acid 4.2 mmol/L (0.5-2.2) H* 08/31/16 14:35 Total Bilirubin 1.7 mg/dL (0.2-1.2) H 09/01/16 04:42 AST 49 Units/L (5-34) H 09/01/16 04:42 Serum Total Protein 5.9 g/dL (6.0-8.3) L D 09/01/16 04:42 Albumin 3.1 g/dL (3.5-5.0) L D 09/01/16 04:42 HDL Cholesterol 92 mg/dL (40-59) H 09/01/16 04:42 Stool Occult Blood Positive (Negative) A 08/31/16 14:43 U Marijuana (THC) Screen Positive ng/mL (Cutoff = 50) H 08/31/16 21:00 Diabetes panel 09/01/16 Range/Units 04:42 Sodium 136 D (136-145) mEq/L Potassium 3.3 L (3.5-4.5) mEq/L Chloride 103 (98-109) mEq/L Carbon Dioxide 25 (19-29) mEq/L BUN 13 (8-26) mg/dL Creatinine 0.65 L (0.72-1.25) mg/dL Glucose 83 (70-99) mg/dL Calcium 8.8 (8.6-10.8) mg/dL AST 49 H (5-34) Units/L ALT 27 (0-55) Units/L Alkaline Phosphatase 43 (38-126) Units/L Albumin 3.1 L D (3.5-5.0) g/dL Triglycerides 47 (< 150) mg/dL HDL Cholesterol 92 H (40-59) mg/dL Calcium panel 09/01/16 Range/Units 04:42 Calcium 8.8 (8.6-10.8) mg/dL Albumin 3.1 L D (3.5-5.0) g/dL Pituitary panel 09/01/16 Range/Units 04:42 Sodium 136 D (136-145) mEq/L Potassium 3.3 L (3.5-4.5) mEq/L Chloride 103 (98-109) mEq/L Carbon Dioxide 25 (19-29) mEq/L BUN 13 (8-26) mg/dL Creatinine 0.65 L (0.72-1.25) mg/dL Glucose 83 (70-99) mg/dL Calcium 8.8 (8.6-10.8) mg/dL Adrenal panel 09/01/16 Range/Units 04:42 Sodium 136 D (136-145) mEq/L Potassium 3.3 L (3.5-4.5) mEq/L Chloride 103 (98-109) mEq/L Carbon Dioxide 25 (19-29) mEq/L BUN 13 (8-26) mg/dL Creatinine 0.65 L (0.72-1.25) mg/dL Glucose 83 (70-99) mg/dL Calcium 8.8 (8.6-10.8) mg/dL Total Bilirubin 1.7 H (0.2-1.2) mg/dL AST 49 H (5-34) Units/L ALT 27 (0-55) Units/L Alkaline Phosphatase 43 (38-126) Units/L Albumin 3.1 L D (3.5-5.0) g/dL All other labs normal. Consult Discharge Plan - Plan Referrals: Alyssia Villanueva, [facility] [Primary Care Provider] -
[2016-09-01] MEDS ORDERED: Simethicone 40 MG/0.6 ML MLS IR ONE (12:49)
[2016-09-01] MEDS ORDERED: Tetracaine/Benzocaine/Butamben 200MG/SPRAY (100SPY/BOT) MM ONE (12:49)
[2016-09-01] MEDS ORDERED: *HR* Midazolam HCl 5 MG/5 ML VIAL IVP ONE (12:52)
[2016-09-01] MEDS ORDERED: *HR* FentaNYL (PF) 100 MCG/2 ML VIAL ONE (12:53)
[2016-09-01] MEDS: *HR* FentaNYL (PF) 100 MCG/2 ML VIAL IVP PRN ×2 (13:01→13:05)
[2016-09-01] MEDS: *HR* Midazolam HCl 5 MG/5 ML VIAL IVP PRN ×2 (13:01→13:05)
--- NOTE | 2016-09-01 16:33 | Electrocardiograph Report ---
[facility] Test Date: 2016-08-31 Pat Name: Michael Bell Department: 105 Room: 3B14 Gender: M Composing Machine Operator: [id number] : 1970 Requested By: Eliana Kam Order Number: [id number] Reading MD: Zacarias Gonzalez DO Measurements Intervals [place] Rate: 90 P: 40 CT: 119 QRS: 70 QRSD: 97 T: 2 QT: 330 QTc: 378 Interpretive Statements Sinus rhythm Inferior ST-T changes possibly due to ischemia Baseline artifact Electronically Signed On 09-01-16 16:32:09 EST by Zacarias Gonzalez DO
[2016-09-02 04:36] LABS: Hemoglobin 9.8 g/dL (12.9-16.9); Immature Granulocytes % 0.3 % (0-4)
[2016-09-02 04:38] LABS: Basophils % 1.1 %; Eosinophils # 0.1 K/mcL (0.0-0.6); Hematocrit 28.5 % (37.5-50.1); Immature Platelets 6.2 % (1.1-6.1); Lymphocytes % 39.9 %; Mean Corpuscular HGB Conc 34.4 g/dL (31.6-35.5); Mean Platelet Volume 10.2 fL (9.4-12.4); Monocytes # 0.4 K/mcL (0.0-1.3); Monocytes % 10.5 %; Neutrophils # 1.6 K/mcL (1.6-8.9); Platelet Count 102 K/mcL (140-400); Red Blood Count 2.88 M/mcL (4.19-5.50); Red Cell Distribution Width 11.6 % (11.5-14.5); Segmented Neutrophils % 45.2 %
[2016-09-02 04:55] LABS: BUN/Creatinine Ratio 7 (6-26); Calcium 8.5 mg/dL (8.6-10.8); Carbon Dioxide 29 mEq/L (19-29); Chloride 98 mEq/L (98-109); Glucose 102 mg/dL (70-99); Osmolality,Calculated 275 (280-300); Potassium 3.1 mEq/L (3.5-4.5); Sodium 134 mEq/L (136-145); eGFR For African Americans > 60 (> 60); eGFR For Non-African Americans > 60 (> 60)
[2016-09-02 04:59] LABS: Blood Urea Nitrogen 4 mg/dL (8-26)
[2016-09-02 05:00] LABS: Lymphocytes # 1.4 K/mcL (0.6-4.6)
[2016-09-02] MEDS: Pantoprazole 40 MG VIAL IVP SCH (06:12)
[2016-09-02] MEDS: 0.9 % Sodium Chloride 1,000 ML IVC SCH (07:39)
[2016-09-02 07:55] VITALS: BP 136/83
[2016-09-02] MEDS: Thiamine (B-1) 100 MG in 0.9 % Sodium Chloride 50 ML IVPB SCH (07:55)
--- NOTE | 2016-09-02 09:53 | Discharge Summary ---
<Hao Coffey - Last Filed: 09/02/16 09:51> Date of Encounter: 09/02/16 Time of Encounter: 09:51 - Discharge Diagnosis (1) GI bleed Priority: Primary Status: Acute Qualifiers: GI bleed type/associated pathology: unspecified gastrointestinal hemorrhage type Qualified Code(s): K92.2 - Gastrointestinal hemorrhage, unspecified (2) Chronic alcoholism Priority: Secondary Status: Acute (3) DVT prophylaxis Priority: Secondary Status: Acute (4) Melena Priority: Secondary Status: Acute (5) Supratherapeutic INR Priority: Secondary Status: Acute (6) Gastritis Priority: Secondary Status: Acute Qualifiers: Gastritis type: alcoholic Chronicity: unspecified Gastritis bleeding: without bleeding Qualified Code(s): K29.20 - Alcoholic gastritis without bleeding (7) Esophagitis Priority: Secondary Status: Acute (8) Irregular Z line of esophagus Priority: Secondary Status: Acute - Discharge Medications Home Medications: Aspirin Enteric Coated [Aspirin EC] 81 mg PO DAILY 05/15/15 [History] Warfarin [Coumadin] 2 mg PO QAM 05/15/15 [History] Multivitamin [Multivitamins] 1 cap PO QAM 08/31/16 [History] Allergies/Adverse Reactions: Allergies Oxycodone Allergy (Verified 08/31/16 16:24) Itching Date of admission: 08/31/16 18:39 Primary care physician: Alyssia Villanueva CNP Consults: Surgery Dr. Swartz Discharging clinician: Hao Coffey Anticipated date of discharge: 09/02/16 - Patient Status Disposition: Left Against Medical Advice Condition: Serious Functional capacity at discharge: independent ambulation Overall status at discharge: patient is not back to baseline - Discharge Instructions Follow Up With: Alyssia Villanueva CNP [Primary Care Provider] - - Diet and Activity Activity: increase activity as tolerated Diet: advance to your usual diet Hospital course: Mr. Bell is a 45 year old male hx of chronic alcoholism, LUE ischemia 2nd to clots anticoagulated on warfarin, left above knee amputation, presented with cc of chest pain of one week that is like a discomfort, substernal, nonradiating denies alleviating and relieving factors, admits to nasuea, vomiting, chills, diaphoresis. CP had gotten progressively worse over the last week week. The morning of admission, he had two bouts of melena. He denies hemetemesis. Patients INR was 3.6 on admission. He received pantoprazole and IVF in ER. Initial Hgb is 12. He denied BRB per rectum. He denied use of IV drugs. 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 Denies previous hx of HIV and hepatitis. Lipase, amylase, tsh, troponin wnl. Patient was admitted and continued on IV pantoprazole,IVF. Surgery was consulted for evaluation of UGI bleed. They recommended reversal of warfarin before any intervention could be done. Patient was given 5mg Vitamin K IV. He was started on CIWA protocol,bannana bag and also hepatitis, HIV and urine drug screen were ordered. Over the first night he had two additional black tarry bowel movements. His Hgb dropped from 12.4 to 10.2. Furthermore, hepatitis and UDS were negative. His INR was 1.3. He underwent upper GI and was found to have gastritis, esophagitis, and irregular Z -line . There was no active bleed found, no evidence of esophageal varicies. He was started back on regular diet which he tolerated. The 2nd morning patients hgb decreased to 9.8. He had additional black tarry bowel movements. He denied chest pain, sob, abdominal pain. Around 9:30AM, Patient decided to leave AMA. He refused further treatment. He was explained that he still may be bleeding from his UGI system. IF he went outpatient and restarted his warfarin his bleeding may worsen and be catastrophic to his health. Patient still decided to leave AMA. - Time Spent with Patient Total time spent providing and/or coordinating discharge services: - Constitutional Vitals: Temp Pulse Resp BP Pulse Ox 98.4 F 93 17 136/83 98 09/02/16 07:54 09/02/16 07:54 09/02/16 07:54 09/02/16 07:54 09/02/16 07:54 General appearance: Present: A&O X 3, answers questions appropriately - Head Head exam: Present: atraumatic, normocephalic - Eye Eye exam: Present: EOMI, PERRL, conjuntiva pink, sclera anicteric - Neck Neck exam general surgery: Present: supple, trachea midline. Absent: lymphadenopathy - Respiratory Respiratory exam: Present: CTAB. Absent: accessory muscle use, rales, rhonchi, wheezes - Cardiovascular Cardiovascular exam: Present: RRR, +S1, +S2. Absent: diastolic murmur, gallop, rubs, systolic murmur - GI/Abdominal GI/Abdominal exam: Present: normal bowel sounds, soft, no peritoneal signs. Absent: distended, tenderness - Extremities Exam Extremities exam: Present: warm, radial pulses palpable and symetrical. Absent : calf tenderness, cyanotic, pedal edema Additional comments: LLE abve knee amputation. - Neurological Exam Neurological exam: Present: CN II-XII intact, oriented X3, no focal deficits. Absent: pronater drift, facial droop, speech deficit - Skin Skin exam: Present: dry, intact <Renu,Stephen P - Last Filed: 09/02/16 18:00> Date of admission: 08/31/16 18:39 Primary care physician: Alyssia Villanueva CNP Hospital course: Mr. Bell is a 45 year old male - Time Spent with Patient Total time spent providing and/or coordinating discharge services: - Constitutional Vitals: Temp Pulse Resp BP Pulse Ox 98.4 F 93 17 136/83 98 09/02/16 07:54 09/02/16 07:54 09/02/16 07:54 09/02/16 07:54 09/02/16 07:54 - Attending Attestation I examined this patient and my medical decision-making was reviewed with the RENDERER/PA/Advanced Practice Nurse/Resident Physician. I agree with the documented findings, disposition and treatment plan as described except to the extent set forth below. Discussed with the patient at length regarding further treatment in the hospital for his melena. Patient insisted to go home. Patient still had black-colored stool ongoing. Noted that patient's hemoglobin has been persistently low. Patient refused to stay in the hospital. Patient understood that he is going home and possible complications secondary to the underlying GI bleed. Patient is willing to follow up with PCP as outpatient. I discussed his case with surgery. I updated surgeon who did an endoscopy about AMA discharge.
== END 2016-09-02 10:44 | disposition left against medical advice (07) | DRG 378 ==
LOC: 3BNU 14:22 → EMEROO 14:22 → 3BNU 17:06
PROVIDERS: ADMIT Internal Medicine; ATTEND Nurse Practitioner Family
PROC: ENDOEBX (2016-09-01 13:00)

== ENCOUNTER 2018-05-22 19:09 | Inpatient (IN) ==
[2018-05-22] MEDS ORDERED: 0.9 % Sodium Chloride 1,000 ML IVC ONE (19:31)
[2018-05-22] MEDS ORDERED: Folic Acid 1 MG in D5% in Water 50 ML IVPB ONE (19:44)
[2018-05-22] MEDS ORDERED: Thiamine (B-1) 100 MG in D5% in Water 50 ML IVPB ONE (19:44)
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
[2018-05-22] MEDS ORDERED: GI Cocktail 40 ML EACH PO ONE (19:56)
--- NOTE | 2018-05-22 20:10 | Emergency Department Note ---
Disposition Clinical Impression: Dehydration, Hyponatremia, Chronic anemia, Left-sided epistaxis Disposition: Admitted As Inpatient Condition: Good Referrals: Alyssia Villanueva LEAD QA ANALYST [Primary Care Provider] - Forms: ED Satisfaction Letter General Adult HPI - General Chief complaint: ED Dizziness Stated complaint: "Near Syncope/Not Feeling Right/Here Earlier" Time Seen by Provider: 05/22/18 19:26 Source: patient, family Nursing Notes Reviewed: Yes Vital Signs Reviewed: Yes - History of Present Illness Pain Scale: 0 - Related Data Home Medications Medication Instructions Recorded Confirmed Ferrous Sulfate [Iron] 325 mg PO DAILY 05/22/18 05/22/18 Losartan [Cozaar] 25 mg PO DAILY 05/22/18 05/22/18 Multivitamin [One Daily Essential] 1 tab PO DAILY 05/22/18 05/22/18 Pantoprazole Sodium [Protonix] 40 mg PO DAILY 05/22/18 05/22/18 Warfarin Sodium 4 mg PO MOTH 05/22/18 05/22/18 Warfarin [Coumadin] 2 mg PO SUTUWEFRSA 05/22/18 05/22/18 Allergies Allergy/AdvReac Type Severity Reaction Status Date / Time Oxycodone Allergy Itching Verified 05/22/18 10:57 Past Medical History - Past Medical History Medical history: Reports: DVT, hypertension, other Surgical history: Reports: other Psychiatric history: Reports: no psych history - Social History Smoking Status: Current every day smoker Smokeless Tobacco Status: No Alcohol use: Reports: heavy, recent Drug use: Reports: marijuana Physical Exam - General General appearance: alert, in no apparent distress Course Vital Signs Temperature 98.1 F 05/22/18 19:13 Pulse Rate 138 05/22/18 19:13 Respiratory Rate 16 05/22/18 19:13 Blood Pressure 123/65 05/22/18 19:13 O2 Sat by Pulse Oximetry 99 05/22/18 19:13 Temperature 98.1 F 05/22/18 19:13 Pulse Rate 104 05/22/18 20:42 Respiratory Rate 16 05/22/18 20:42 Blood Pressure 144/93 05/22/18 20:42 O2 Sat by Pulse Oximetry 97 05/22/18 20:42 Oxygen Delivery Oxygen Delivery Room Air Medical Decision Making - Medical Records Medical records reviewed: Yes I reviewed the patient's medical records. - Lab Data Lab results reviewed: Yes I reviewed the patient's lab results. Result diagrams: 05/22/18 19:34 Lab Results 05/22/18 Range/Units 19:34 Sodium 126 L (136-145) mEq/L Potassium 3.2 L (3.5-5.1) mEq/L Chloride 83 L (98-107) mEq/L Carbon Dioxide 19 L (23-29) mEq/L BUN 26 H (6-20) mg/dL Creatinine 0.71 (0.70-1.30) mg/dL Est GFR ( Amer) > 60 (> 60) Est GFR (Non-Af Amer) > 60 (> 60) BUN/Creatinine Ratio 37 H (6-26) Glucose 137 H (70-105) mg/dL Calculated Osmolality 269 L (280-300) Calcium 10.0 (8.6-10.3) mg/dL Magnesium 2.2 (1.6-2.6) mg/dL - Radiology Data Radiology results reviewed: Yes I reviewed the patient's radiology results. Chest X-Ray 05/22/18 19:48 IMPRESSION: No acute cardiopulmonary process. D/ / 05/22/2018 20:25:08 Seferino Callahan MD / ben Interpreting Provider: Seferino Callahan MD - EKG Data EKG #1 EKG attestation: Yes I reviewed and interpreted this EKG. EKG results narrative: EKG shows a sinus tachycardia with ventricular rate of 131. Poor technical quality tracing. No definite acute ST segment elevation or depression noted. No ectopy. Attestation Statement - Attestation Attestation: I, Tyler Bañuelos MD, personally evaluated this patient and discussed their management with the resident physician. I reviewed the resident's note and agree with the documented findings, medical decision making, and plan of care. 47-year-old male presents to the emergency department with a complaint of feeling weak and dizzy and lightheaded. He lost his balance and had to lean against a wall today and then with help was unable to stand on his on. No actual syncope. He also has been shaky and diaphoretic. Patient is on Coumadin. This is his third ED visit in less than 48 hours. He was seen here early yesterday morning for a nosebleed. He was not actively bleeding at the time. He was advised to hold his Coumadin which he did. He was seen here again earlier today because of persistent nosebleed. A nasal packing was placed on the left. He states he went home from here about 2:30 PM and has continued to have oozing of blood but no heavy bleeding. Since about 5:30 PM he has felt more weak and dizzy and lightheaded. Mild shortness of breath. No chest pain. Patient is alcoholic and drinks 12-15 beers per day. On examination patient is a well-developed thin male in no acute distress. He is alert and oriented 3. There is no cyanosis or diaphoresis. He has a left nasal packing in place. The packing is saturated with blood but is not dripping or oozing blood. Chest is nontender to palpation. Breath sounds are decreased but clear and equal bilaterally. Heart is tachycardic and regular. Abdomen soft and nontender with normal bowel sounds. Labs reviewed. EKG shows sinus tachycardia. No acute abnormality on chest x- ray. The hospitalist, Dr. Ríos, was consulted and accepted admission of the patient.
[2018-05-22 20:15] LABS: BUN/Creatinine Ratio 37 (6-26); Blood Urea Nitrogen 26 mg/dL (6-20); Carbon Dioxide 19 mEq/L (23-29); Chloride 83 mEq/L (98-107); Glucose 137 mg/dL (70-105); Magnesium 2.2 mg/dL (1.6-2.6); Osmolality,Calculated 269 (280-300); Potassium 3.2 mEq/L (3.5-5.1); Sodium 126 mEq/L (136-145); eGFR For Non-African Americans > 60 (> 60)
[2018-05-22 21:40] LABS: Ethanol 12 mg/dL (Less than 10)
[2018-05-22] MEDS ORDERED: Potassium Chloride Elixir 20 MEQ/15 ML UDC PO ONE (21:53)
[2018-05-22] MEDS ORDERED: *HR* LORazepam 2 MG/ML VIAL IVP PRN (21:53)
--- NOTE | 2018-05-22 22:22 | Internal Med History&Physical ---
Date of Encounter: 05/22/18 Time of Encounter: 22:22 Internal Medicine - H&P: HPI Chief complaint: Dizziness Admitted From: Home Plans for Post Hospital Care: Home History of present illness: Michael Bell is 47-year-old male with medical history significant for chronic alcoholism, multiple clots left upper extremity status post procedural intervention 5 times in the left upper extremity (thromboembolectomy), no history of lower extremity clot, status post left [id number] amputation due to an accident when he was a child, chronic anticoagulation with warfarin with history of GI bleed. He presents now to the ER for the third time in 2 days, initially coming in for epistaxis twice requiring nasal packing and topical spray. He was also advised to hold his warfarin. He presents now complaining of dizziness, lightheadedness and generalized fatigue since his last visit in the morning. He was notably tachycardic as well but not hypoxic or dyspneic. His nasal packing remained in place, saturated but no blood oozing. He admits to ongoing alcohol use, drinking 5 cans of beer before coming in. His lab work revealed Na 126, K 3.2, INR 2.6, Hgb of 12.8 which appears more at baseline than his prior value of 14.2 yesterday at which time it was felt he may have been dehydrated. He is admitted for ongoing observation given the preceding events. Past Med Surg Social Fam HX - Past Medical History Medical history: DVT, hypertension, other Additional medical history: blood clots, smoker, L leg amputation, etoh Psychiatric history: no psych history - Past Surgical History Surgical History: other Additional surgical history: surgery for blood clots. left leg amputation, finger amputation - Social History Smoking Status: Current every day smoker Smokeless Tobacco Status: No Alcohol use: heavy, recent Drug use: marijuana - Family History Father Living Status: Hx Family Cardiac Disorders: Yes ([place]) Internal Medicine - H&P: Meds Ferrous Sulfate [Iron] 325 mg PO DAILY 05/22/18 [History] Losartan [Cozaar] 25 mg PO DAILY 05/22/18 [History] Multivitamin [One Daily Essential] 1 tab PO DAILY 05/22/18 [History] Pantoprazole Sodium [Protonix] 40 mg PO DAILY 05/22/18 [History] Warfarin Sodium 4 mg PO MOTH 05/22/18 [History] Warfarin [Coumadin] 2 mg PO SUTUWEFRSA 05/22/18 [History] 3 Allergy/AdvReac Type Severity Reaction Status Date / Time Oxycodone Allergy Itching Verified 05/22/18 10:57 All Systems PM: A 10-system review of systems was performed and is negative for pertinent findings except as documented above in the HPI. - Constitutional Vitals: Temp Pulse Resp BP Pulse Ox 98.1 F 118 18 144/84 100 05/22/18 19:13 05/22/18 22:18 05/22/18 22:18 05/22/18 22:18 05/22/18 22:18 Exam: Vitals: Reviewed General: NAD, unkempt, slightly shaky. Skin: Warm and supple HEENT: Moist mucous membranes. No conjunctivae pallor. Neck: No lymphadenopathy. No JVD. No carotid bruits. No palpable thyroid. Chest: Normal thoracic expansion. Normal breath sounds. Clear to auscultation. Heart: Normal S1 & S2; rhythmic. No rubs or murmurs. Abdomen: Non-distended, soft and non-tender to palpation. No peritoneal reaction. Liver is normal in size. Spleen is not palpable. Extremities: Left leg AKA. Right leg non-cyanotic. Neurological: Awake, alert and oriented to person, place and time. No focal deficits. Psych: Affect appropriate. Internal Med - H&P Results - Labs CBC & Chem 7: 05/22/18 19:34 Labs: BMP 05/22/18 19:34 Sodium 126 L Potassium 3.2 L Chloride 83 L Carbon Dioxide 19 L BUN 26 H Creatinine 0.71 Glucose 137 H Calcium 10.0 - Impressions ITS Impressions Chest X-Ray 05/22/18 19:48 IMPRESSION: No acute cardiopulmonary process. D/ / 05/22/2018 20:25:08 Seferino Callahan MD / ben Interpreting Provider: Seferino Callahan MD - Assessment and plan (1) Hypokalemia Current Visit: Yes Status: Acute Assessment and plan: Mild. Will supplement with PO and place in IVF to run overnight. Will check Mg. (2) Hyponatremia Current Visit: Yes Status: Acute Assessment and plan: Likely related to chronic alcohol use compounded by hypovolemic state. Will administer IV NS and recheck levels. (3) Left-sided epistaxis Current Visit: Yes Status: Acute Assessment and plan: Appears well controlled at this time. Scheduled for ENT OP visit in 2 days for f/u. (4) Anemia Current Visit: Yes Status: Chronic Assessment and plan: The patient's Hgb seems to fluctuate between 10-12. The 13-14 he had 2 days ago may have been secondary to hemoconcentration. On the other hand, it it was a real value, then it suggests his epistaxis may be the cause of this acute blood loss. For now however he appears stable but will repeat his H/H again in the morning barring any complications overnight and manage accordingly. Type/screen to be obtained just in case. FOBT is ordered however this may be altered by the fact he is swallowing blood from his post-nasal drip. Qualifiers: Anemia type: iron deficiency Iron deficiency anemia type: chronic blood loss Qualified Code(s): D50.0 - Iron deficiency anemia secondary to blood loss (chronic) (5) Chronic alcoholism Current Visit: Yes Status: Acute Assessment and plan: His alcoholic state is likely playing a role in his dizziness and electrolytic abnormalities. Shall place him on CIWA protocol, vitamin supplementation and fluid resuscitation. Aspiration/fall precautions ordered. (6) Dizziness Current Visit: Yes Status: Acute Assessment and plan: Concerned it may be related to alcohol intoxication given his reported history. May equally be compounded by blood loss through epistaxis. Management as indicated above. (7) DVT prophylaxis Current Visit: Yes Status: Acute Assessment and plan: Anti-embolic stockings for now. Warfarin will remain on hold until bleeding stops. - Time Spent With Patient Total time spent is greater than 50% in coordination of care (as documented) at patient's floor/unit and/or counseling patient: Greater than 35 minutes
[2018-05-22 22:48] LABS: Bilirubin,Urine Negative (Negative); Blood,Urine Negative (Negative); Clarity,Urine Clear (Clear); Color,Urine Yellow (Yellow); Glucose,Urine (UA) 100 mg/dL (Normal); Ketones,Urine 40 mg/dL (Negative); Leukocyte Esterase,Urine Negative (Negative); Nitrite,Urine Negative (Negative); Protein,Urine Trace mg/dL (Neg-Trace); Specific Gravity,Urine 1.015 (1.010-1.025); Urobilinogen,Urine Normal (Normal)
[2018-05-22 22:51] LABS: Bacteria,Urine None Seen per hpf (None-Few); Hyaline Casts,Urine None Seen per lpf (None-Few); RBC,Urine 0-3 per hpf (0-3); Squamous Epithelial Cell,Urine None Seen per lpf (None-Few); WBC,Urine 0-3 per hpf (0-3)
[2018-05-23] MEDS: 0.9 % Sodium Chloride w KCl 40 MEQ/1,000 ML MLS IVC SCH ×3 (00:12→17:06)
--- NOTE | 2018-05-23 01:07 | Event Note ---
Date of Encounter: 05/23/18 Time of Encounter: 01:07 The patient continues to have a significant amount of bleeding now from both nares. At this point given the continuation of bleeding over the last 2 days I advised that we revert his INR back to normalcy by giving him FFP. This should assist with his coagulopathy while continuing pressure in his nares. He will benefit from ENT follow-up in the morning.
[2018-05-23 01:24] LABS: Basophils % 0.2 %; Hematocrit 26.9 % (37.5-50.1); Mean Corpuscular HGB Conc 34.9 g/dL (31.6-35.5); Red Cell Distribution Width 11.8 % (11.5-14.5)
[2018-05-23 01:26] LABS: Eosinophils % 0.2 %; Hemoglobin 9.4 g/dL (12.9-16.9); Immature Granulocytes % 0.8 % (0-4); Immature Platelets 7.6 % (1.1-6.1); Lymphocytes # 0.9 K/mcL (0.6-4.6); Lymphocytes % 19.2 %; Mean Corpuscular Hemoglobin 34.8 pg (28.0-33.3); Mean Corpuscular Volume 99.6 fL (83.0-100.0); Mean Platelet Volume 10.3 fL (9.4-12.4); Monocytes # 0.9 K/mcL (0.0-1.3); Monocytes % 18.6 %; Neutrophils # 2.9 K/mcL (1.6-8.9)
[2018-05-23 01:27] LABS: Platelet Count 99 K/mcL (140-400)
[2018-05-23 01:33] LABS: INR 2.7; Prothrombin Time 29.9 Seconds (9.4-12.1)
[2018-05-23 01:44] LABS: Alanine Aminotransferase 29 Units/L (7-52); Albumin 3.7 g/dL (3.5-5.7); Albumin/Globulin Ratio 1.8 (1.1-2.2); Alkaline Phosphatase 31 Units/L (34-104); Aspartate Amino Transferase 41 Units/L (13-39); BUN/Creatinine Ratio 38 (6-26); Bilirubin,Direct 0.3 mg/dL (0.0-0.2); Bilirubin,Indirect 0.8 mg/dL (0.0-1.2); Bilirubin,Total 1.1 mg/dL (0.3-1.0); Blood Urea Nitrogen 21 mg/dL (6-20); Calcium 8.2 mg/dL (8.6-10.3); Carbon Dioxide 27 mEq/L (23-29); Chloride 93 mEq/L (98-107); Globulin 2.1 g/dL (2.4-3.5); Glucose 99 mg/dL (70-105); Magnesium 2.1 mg/dL (1.6-2.6); Osmolality,Calculated 271 (280-300); Potassium 4.3 mEq/L (3.5-5.1); Sodium 129 mEq/L (136-145); Total Protein 5.8 g/dL (6.4-8.9); eGFR For Non-African Americans > 60 (> 60)
[2018-05-23 07:07] LABS: INR 1.7; Prothrombin Time 19.5 Seconds (9.4-12.1)
[2018-05-23] MEDS: Folic Acid 1 MG TABLET PO SCH (08:03)
[2018-05-23] MEDS: Thiamine (B-1) 100 MG TABLET PO SCH (08:03)
[2018-05-23] MEDS: Multivit/Ca/Min/Fe/FA 1 TAB TABLET PO SCH (08:03)
[2018-05-23] MEDS ORDERED: Ondansetron 4 MG/2 ML VIAL IVP PRN (09:06)
--- NOTE | 2018-05-23 09:57 | Internal Med Progress Note ---
Hospitalist Progress Note - Encounter Date of Encounter: 05/23/18 Time of Encounter: 09:15 - Subjective Interval History: Patient continues to have chief complaint of swallowing blood with nausea and currently when entered room he was vomiting up a dark coffee ground type of emesis. We will get a GI consult as well as start him on some Zofran 8 mg IV push every 8 hours when necessary - Exam Vitals: Temp Pulse Resp BP Pulse Ox 99.0 F 122 16 128/70 100 05/23/18 08:55 05/23/18 08:55 05/23/18 08:55 05/23/18 08:55 05/23/18 08:55 Exam: He has mild temp of 99 this morning however he is stable with blood pressure 128 /70, mild tach pulse of 122 - Assessment and Plan (1) GI bleed Current Visit: Yes Status: Acute Assessment and Plan: Patient having a large coffee grounds emesis this morning. Hemoglobin remains low, he is status post past one pack red blood cell transfusion we will repeat CBC in 3-4 hours on a time schedule and have consulted gastroenterology. He is to remain nothing by mouth pending gastroenterology consult may have Zofran 8 mg every 8 hours when necessary as needed for nausea and vomiting (2) Left-sided epistaxis Current Visit: Yes Status: Acute Assessment and Plan: Packing still remains in the left ENT consult is still pending. He does continue to have moderate active bleeding with drainage down in the posterior pharynx were he is swallowing it into the stomach. Entered the room the patient was actively vomiting a dark red coffee-ground type emesis. Patient feels that is because he is swallowing some much pleasant down the posterior pharynx. Patient has been transfused with one pack of red blood cells and FF he has been completed. PT and INR have resolved down to PT 19.5 INR stabilized at 1.7 status post FFP. Red blood cells remained low at 2.7 hemoglobin 9.4 hematocrit is 26.9, we will repeat hematology, in 3-4 hours to recheck levels pending of finishing of one pack of red blood cells. Patient remains nothing by mouth (3) Anemia Current Visit: Yes Status: Chronic Assessment and Plan: The lab work as above. We will continue with folic acid and iron Tablet (4) Chronic alcoholism Current Visit: Yes Status: Chronic Assessment and Plan: Patient has a long-standing history of chronic alcoholism when he was admitted through the emergency room he did state that he had been drinking about 6 beers prior to admission. At that time he felt dizzy and weak it was indeterminate if the dizziness and weakness was due to intoxication or works due to anemia. Alcohol level at that time was 12. Today he denies any signs or symptoms of DTRs. We will continue to monitor for withdrawal signs and symptoms. (5) Hyponatremia Current Visit: Yes Status: Acute Assessment and Plan: Sodium is remaining low at 129 but improved over yesterday with chlorides elevated to 93 from 83. We will continue to monitor. We will restart IV fluids at 100 mL per 0.9% (6) Hypokalemia Current Visit: Yes Status: Acute Assessment and Plan: Potassium has normalized to 4.3 (7) Dizziness Current Visit: Yes Status: Acute Assessment and Plan: Denies dizziness headache or shortness of breath (8) DVT prophylaxis Current Visit: Yes Status: Acute Assessment and Plan: Continue per protocol - Summary of Assessment and Plan Summary of Assessment and Plan: Mr. Bell is a 47-year-old male patient who was admitted through the emergency room hospital stay day 1. He initially was admitted with epistaxis and a hypercoagulable state due to Coumadin indigestion. His history is positive for chronic alcoholism and drinks 12 beers plus per day. Upon admission his PT was 29.9 and INR was 2.7. He has since received FFP and INR is now down to 1.7 . he continues with active epistaxis from the left nostril, has developed coffee- ground emesis , as well as having bloody frequent stools, Stool guaiac was positive x 1 . One pack of red blood cells has been transfused in the park going to await pending CBC. GI consult for GI bleed has been completed and is pending ENT consult has been completed and is pending. Patient remains in an nothing by mouth status will continue with the IV supplement for potassium and normal saline for hyponatremia potassium has stabilized at 4.3. Vital signs are stable with a tachycardia pulse of 122. We will continue to monitor this patient closely. - Time Spent with Patient Total time spent is greater than 50% in coordination of care (as documented) at patient's floor/unit and/or counseling patient: 25 - 35 minutes Plan of Care Discussed with: patient Internal Medicine: Result - Labs CBC & Chem 7: 05/23/18 01:12 05/23/18 01:12 Labs: Short CBC 05/23/18 Range/Units 01:12 WBC 4.8 (4.3-11.1) K/mcL Hgb 9.4 L D (12.9-16.9) g/dL Hct 26.9 L (37.5-50.1) % Plt Count 99 L (140-400) K/mcL Neutrophils # 2.9 (1.6-8.9) K/mcL BMP 05/23/18 01:12 Sodium 129 L Potassium 4.3 D Chloride 93 L Carbon Dioxide 27 BUN 21 H Creatinine 0.55 L Glucose 99 Calcium 8.2 L Liver Function 05/23/18 Range/Units 01:12 Total Bilirubin 1.1 H (0.3-1.0) mg/dL Direct Bilirubin 0.3 H (0.0-0.2) mg/dL AST 41 H (13-39) Units/L ALT 29 (7-52) Units/L Alkaline Phosphatase 31 L (34-104) Units/L Albumin 3.7 (3.5-5.7) g/dL - ABG Interpretation ABG results: PT/INR, D-dimer PT 19.5 Seconds (9.4-12.1) H 05/23/18 06:40 Consult Discharge Plan - Plan Referrals: Alyssia Villanueva, [employer]RATOR [Primary Care Provider] - (Your appointment has been webrequested. Our offices will call you with an appointment time and date. ) (1) GI bleed Qualifiers: GI bleed type/associated pathology: unspecified gastrointestinal hemorrhage type Qualified Code(s): K92.2 - Gastrointestinal hemorrhage, unspecified (3) Anemia Qualifiers: Anemia type: iron deficiency Iron deficiency anemia type: chronic blood loss Qualified Code(s): D50.0 - Iron deficiency anemia secondary to blood loss ( chronic)
[2018-05-23 10:04] LABS: Basophils % 0.3 %; Mean Platelet Volume 10.8 fL (9.4-12.4)
[2018-05-23 10:06] LABS: Hematocrit 24.7 % (37.5-50.1); Hemoglobin 8.4 g/dL (12.9-16.9); Immature Granulocytes % 0.6 % (0-4); Immature Platelets 8.1 % (1.1-6.1); Lymphocytes # 1.4 K/mcL (0.6-4.6); Lymphocytes % 19.9 %; Mean Corpuscular Hemoglobin 33.7 pg (28.0-33.3); Mean Corpuscular Volume 99.2 fL (83.0-100.0); Monocytes # 1.1 K/mcL (0.0-1.3); Monocytes % 15.2 %; Neutrophils # 4.6 K/mcL (1.6-8.9); Red Blood Count 2.49 M/mcL (4.19-5.50); Red Cell Distribution Width 13.9 % (11.5-14.5)
[2018-05-23 10:10] LABS: Platelet Count 87 K/mcL (140-400)
[2018-05-23] MEDS ORDERED: 0.9 % Sodium Chloride 1,000 ML IVC SCH (10:30)
[2018-05-23] MEDS: Nicotine 21 MG PATCH.TD24 TD SCH (11:38)
--- NOTE | 2018-05-23 12:22 | Gastroenterology Consult Note ---
<J Carlos Webster - Last Filed: 05/23/18 12:19> Date of Encounter: 05/23/18 Time of Encounter: 10:30 - Assessment and plan (1) GI bleed Status: Acute Assessment and plan: Patient with coffee-ground emesis and FOBT positive, likely secondary to epistaxis. Recommend ENT evaluation. Plan for EGD tomorrow if necessary. Qualifiers: GI bleed type/associated pathology: unspecified gastrointestinal hemorrhage type Qualified Code(s): K92.2 - Gastrointestinal hemorrhage, unspecified (2) Epistaxis Status: Acute (3) Anemia Status: Chronic Assessment and plan: Hgb on admission (05/23) was 9.4 and 8.4 on recheck this AM. On 05/22 Hgb 12.8 and was 14.2 on 05/21. Continue to monitor CBC and transfuse PRBC as needed. Qualifiers: Anemia type: iron deficiency Iron deficiency anemia type: chronic blood loss Qualified Code(s): D50.0 - Iron deficiency anemia secondary to blood loss (chronic) - Time Spent With Patient Total time spent is greater than 50% in coordination of care (as documented) at patient's floor/unit and/or counseling patient: GI History of Present Illness - Data of Consult Patient: new to practice Consult date: 05/23/18 Requesting Physician: Jake Ríos MD - Consult Narrative Reason for consult: GI bleed History of present illness: Mr. Bell is a 47 year old male with PMHx of chronic alcoholism, DVT, HTN, s/p left AKA, chronic anticoagulation with Coumadin with history of GI bleed presented to the ED with epistaxis, dizziness, lightheadedness, and fatigue. He was seen in the ED two other times for his epistaxis, and required nasal packing and topical spray. He was tachycardic on arrival and nasal packing was saturated. He is an alcoholic and reports drinking 12-15 beers per day. He states he started drinking alcohol when he was 13 years old. We were consulted to evaluate for possible GI bleed. Hgb on admission (05/23) was 9.4 and 8.4 on recheck this AM. On 05/22 Hgb 12.8 and was 14.2 on 05/21. He reports feeling blood in the back of his throat and continues to swallow "a lot" of blood. Pt had coffee-ground emesis this AM. Fecal occult blood test was positive as well. Procedures: EGD 09/01/2016 Dr. 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 NSAIDs: None Anticoagulation: Coumadin Past Med Surg Social Fam HX - Past Medical History Medical history: DVT, hypertension, other Additional medical history: blood clots, smoker, L leg amputation, etoh Psychiatric history: no psych history - Past Surgical History Surgical History: other Additional surgical history: surgery for blood clots. left leg amputation, finger amputation - Social History Smoking Status: Current every day smoker Smokeless Tobacco Status: No Alcohol use: heavy, recent Drug use: marijuana - Family History Father Living Status: Hx Family Cardiac Disorders: Yes (stents, defibulator, bypasses) Mother Living Status: Hx Family Respiratory Disorders: Yes (copd) - Gastrointestinal Gastrointestinal: Present: as per HPI - Constitutional Constitutional: as per HPI - EENT Eyes: as per HPI Ears: Present: as per HPI Nose, mouth and throat: Present: as per HPI - Cardiovascular Cardiovascular ROS: Present: as per HPI - Respiratory Respiratory IM: Present: as per HPI - Genitourinary Genitourinary: Absent: change in color, Urinary frequency - Neurological ROS Neurological GI: Present: as per HPI - Hematologic/Lymphatic Hematologic/Lymphatic pediatric: Present: as per HPI - Musculoskeletal Musculoskeletal ROS GI: Present: as per HPI - Integumentary Integumentary GI: Present: as per HPI - Psychiatric ROS Psychiatric GI: Present: as per HPI - Endocrine Endocrine IM: Present: as per HPI - Constitutional Vitals: Temp Pulse Resp BP Pulse Ox 98.4 F 113 18 145/81 100 05/23/18 10:50 05/23/18 10:50 05/23/18 10:50 05/23/18 10:50 05/23/18 10:50 General appearance: Present: cooperative, A&O X 3, no acute distress, answers questions appropriately - Head Head exam: Present: atraumatic, normocephalic - Eye Eye exam: Present: normal appearance, sclera anicteric - ENT ENT exam: Present: mucous membranes dry - Neck Neck exam general surgery: Present: normal inspection, trachea midline - Respiratory Respiratory exam: Present: CTAB. Absent: rales, rhonchi - Cardiovascular Cardiovascular exam: Present: RRR, +S1, +S2 - GI/Abdominal GI/Abdominal exam: Present: soft, no peritoneal signs. Absent: distended, firm , guarding, tenderness - Rectal Rectal exam: Present: deferred - Extremities Exam Additional comments: Left AKA - Neurological Exam Neurological exam: Present: no focal deficits - Psychiatric Psychiatric exam: Present: normal affect, normal mood - Skin Skin exam: Present: dry, intact, normal color, warm Results - Labs CBC & Chem 7: 05/23/18 09:41 05/23/18 01:12 Labs: Last Result Calcium 8.2 mg/dL (8.6-10.3) L 05/23/18 01:12 Stool Occult Blood Positive (Negative) A 05/23/18 03:00 Entire Visit Hgb 8.4 g/dL (12.9-16.9) L 05/23/18 09:41 Hct 24.7 % (37.5-50.1) L 05/23/18 09:41 PT 19.5 Seconds (9.4-12.1) H 05/23/18 06:40 Total Bilirubin 1.1 mg/dL (0.3-1.0) H 05/23/18 01:12 AST 41 Units/L (13-39) H 05/23/18 01:12 ALT 29 Units/L (7-52) 05/23/18 01:12 - ABG ABG results: PT/INR, D-dimer PT 19.5 Seconds (9.4-12.1) H 05/23/18 06:40 Consult Discharge Plan - Plan Referrals: Louisa Oquendo CNP [Advanced Practice Nurse] - 05/27/18 11:00 am Alyssia Villanueva CNP [Primary Care Provider] - 05/28/18 10:20 am () Prescriptions: cephALEXin [Keflex] 500 mg PO BID #6 capsule Folic Acid 1 mg PO DAILY #30 tablet Potassium Chloride 20 meq PO BID #60 tab.er.prt Thiamine (B-1) [Vitamin B-1] 100 mg PO DAILY #30 tablet <Gilbert Sanderson - Last Filed: 05/27/18 00:53> Date of Encounter: 05/23/18 - Time Spent With Patient Total time spent is greater than 50% in coordination of care (as documented) at patient's floor/unit and/or counseling patient: GI History of Present Illness - Data of Consult Requesting Physician: Jake Ríos MD - Consult Narrative History of present illness: Mr. Bell is a 47 year old male - Constitutional Vitals: Temp Pulse Resp BP Pulse Ox 97.9 F 90 16 120/79 100 05/26/18 06:59 05/26/18 06:59 05/26/18 06:59 05/26/18 06:59 05/26/18 06:59 Results - Labs CBC & Chem 7: 05/26/18 02:43 05/26/18 02:43 Labs: Last Result Calcium 8.5 mg/dL (8.6-10.3) L 05/26/18 02:43 Stool Occult Blood Positive (Negative) A 05/23/18 03:00 Entire Visit Hgb 8.2 g/dL (12.9-16.9) L 05/26/18 02:43 Hct 23.0 % (37.5-50.1) L 05/26/18 02:43 PT 19.5 Seconds (9.4-12.1) H 05/23/18 06:40 Total Bilirubin 1.1 mg/dL (0.3-1.0) H 05/23/18 01:12 AST 41 Units/L (13-39) H 05/23/18 01:12 ALT 29 Units/L (7-52) 05/23/18 01:12 - ABG ABG results: PT/INR, D-dimer PT 19.5 Seconds (9.4-12.1) H 05/23/18 06:40 - Attending Attestation Michael Bell has had aminata epistaxis and tastes blood in the back of his throat. Suspect this is the etiology of his anemia. Feel coffee ground emesis is secondary to swallowed blood but, will plan EGD for benefit of doubt to rule out any concurrent GI cause. Please get ENT for the epistaxis. I have personally performed a face to face evaluation on this patient. I have reviewed and agree with the care plan. History and Exam by me shows:
--- NOTE | 2018-05-23 13:18 | ENT - Consult Note ---
Date of Encounter: 05/23/18 Time of Encounter: 13:11 Assessment and Plan (1) Left-sided epistaxis Current Visit: Yes Status: Acute The patient has likely left posterior epistaxis which has caused the bleeding down his throat causing him to have coffee-ground emesis and also melena. I have cauterized the left anterior septum and inferior turbinate and there is no further bleeding from this area however because of his posterior epistaxis I have placed a 7.5 cm Rhino Rocket and inflated the balloon to 6 mL of water. There was complete resolution of the posterior epistaxis after the rhinorocket was placed.. This nasal packing will need to remain in place for 5 full days. I also recommend that the patient stay off his Coumadin until the nasal pack is removed. Given that he has no further epistaxis with the nasal packing in place , I feel that he can be discharged home if his other medical problems are stable. I have discussed with the patient that he should not do any heavy physical activity for the next 5 days while the nasal packing is in place. I also discussed with the patient that he will have epiphora on the left because of the nasal pack and may even see some blood from his tear duct while the pack is in place. He should follow up with the ENT service in 5 days. In addition he should be placed on Keflex 500 mg twice a day for 5 days while the nasal packing is in place. He can take Tylenol as needed for the discomfort with the nasal pack. He should avoid any nonsteroidal anti-inflammatory medications for pain. I have also discussed with the patient that he should try to remove the packing himself. Given that his epistaxis has resolved with the new nasal pack in place, I will sign off for now. Please reconsult if needed. Discussed above With Samra Naylor NP. History of Present Illness Consult date: 05/23/18 Reason for ENT Consult: epistaxis Requesting physician: Alyssia Naylor History of present illness: Mr. Bell is a 47 year old male with PMHx of chronic alcoholism, DVT, HTN, s/p left AKA, chronic anticoagulation with Coumadin with history of GI bleed presented to the ED with left sided epistaxis, dizziness, lightheadedness, and fatigue. He was seen in the ED two days prior his left epistaxis, and on the second time, a mirocel nasal packing was placed. The patient states that he continued to have bleeding from his left anterior nares and also was spitting up about a teaspoon of blood. He was tachycardic on arrival and nasal packing was saturated. He is an alcoholic and reports drinking 12-15 beers per day. He states he started drinking alcohol when he was 13 years old. Hgb on admission () was 9.4 and 8.4 on recheck this AM. On 05/22 Hgb 12.8 and was 14.2 on 05/21. He reports that this morning he had blood in the back of his throat and had coffee-ground emesis this AM. Fecal occult blood test was positive as well. He notices his stool is dark this am. He states that in the past hour, he has not had any bleeding from his left nares and he is not spitting up blood. Asked to evaluate patient for persistent bleeding after nasal packing place. PT 19.5, INR 1.7 this AM. Past Med Surg Social Fam HX - Past Medical History Medical history: DVT, hypertension, other Additional medical history: blood clots, smoker, L leg amputation, etoh Psychiatric history: no psych history - Past Surgical History Surgical History: other Additional surgical history: surgery for blood clots. left leg amputation, finger amputation - Social History Smoking Status: Current every day smoker Smokeless Tobacco Status: No Alcohol use: heavy, recent Drug use: marijuana - Family History Father Living Status: Hx Family Cardiac Disorders: Yes (stents, defibulator, bypasses) Mother Living Status: Hx Family Respiratory Disorders: Yes (copd) Medications and Allergies Ferrous Sulfate [Iron] 325 mg PO DAILY 05/22/18 [History] Losartan [Cozaar] 25 mg PO DAILY 05/22/18 [History] Multivitamin [One Daily Essential] 1 tab PO DAILY 05/22/18 [History] Pantoprazole Sodium [Protonix] 40 mg PO DAILY 05/22/18 [History] Warfarin Sodium 4 mg PO MOTH 05/22/18 [History] Warfarin [Coumadin] 2 mg PO [id number] 05/22/18 [History] 3 Allergy/AdvReac Type Severity Reaction Status Date / Time Oxycodone Allergy Itching Verified 05/22/18 10:57 ENT - ROS - Constitutional Constitutional ROS: no daytime sleepiness, no fever(s), no headache(s), no lethargy, no snoring, no stops breathing during sleep - EENT Nose, mouth and throat: no abnormal hearing, no bleeding gums, no change in voice, no dental pain, no disequilibrium, no dizziness, no dry mouth, no dysphagia, no facial pain, no halitosis, no headache(s), no hoarseness, no lip swelling, no mouth lesions, no mouth pain, no nasal congestion, no nasal discharge, no nasal obstruction, no nasal trauma, no neck mass, no neck pain, no nose pain, no odynophagia, no post-nasal drip, no sinus pain, no sinus pressure, no sore throat, no throat swelling, no tongue swelling, no vertigo - Cardiovascular Cardiovascular ROS IM: no chest pain, no chest pain at rest, no chest pain with activity, no dyspnea, no edema, no irregular heart rhythm, no radiating jaw, neck or arm pain, no lightheadedness, no orthopnea, no paroxysmal nocturnal dyspnea, no syncope - Respiratory no cough, no dyspnea, no hemoptysis, no dyspnea on exertion, no wheezing, no snoring, no stridor, no pain on inspiration, no chest congestion, no excessive phlegm production, no change in phlegm color, no pain with cough - Gastrointestinal Gastrointestinal: no constipation, no diarrhea, no dyspepsia, no dysphagia, no heartburn, no odynophagia - Genitourinary Genitourinary ROS: no difficulty urinating, no dysuria, no urinary frequency, no urinary incontinence, no urinary urgency - Musculoskeletal Musculoskeletal ROS: no abnormal gait, no muscle weakness, no myalgias, no neck pain, no numbness, no stiffness, no tingling - Integumentary Integumentary: no acne, no bleeding lesions, no change in hair, no change in nails, no change in pigmentation, no changing lesions, no erythema, no furuncle , no lesions, no new lesions, no non-healing lesions, no pruritus, no rash, no skin ulcer, no sores - Psychiatric Psychiatric general: no abnormal sleep pattern, no anxiety, no auditory hallucinations - Endocrine Endocrine: no cold intolerance, no deeping of the voice, no excessive sweating, no fatigue, no flushing, no heat intolerance, no palpitations, no polydipsia, no polyphagia, no polyuria - Hematologic/Lymphatic no easy bleeding, no easy bruising, no lymphadenopathy - Allergic/Immunologic no tongue swelling, no throat swelling, no itchy eyes, no seasonal rhinorrhea, no uticaria, no wheezing, no GI upset with certain foods, no lip swelling ENT Exam Initial Vital Signs Temp Pulse Resp BP Pulse Ox 98.1 F 138 16 123/65 99 05/22/18 19:13 05/22/18 19:13 05/22/18 19:13 05/22/18 19:13 05/22/18 19:13 - Additional Findings Normocephalic, atraumatic Ears: Normal pedis bilaterally, normal external auditory canals bilaterally. Panic membranes are normal bilaterally. Middle ear spaces are clear bilaterally. Areas: Normal nasal dorsum alar and vestibule. There is a Merocel pack in the left nasal cavity which is not saturated. There is no active bleeding from the left nasal cavity. The right nasal cavity shows a deviated septum to the left with prominent vessels anteriorly. There is no active bleeding on the right. The mucosa is normal. There are no polyps or lesions. The packing is removed from the left nasal cavity with bayonet forceps. The septum is deviated to the left. There is some mild oozing superiorly in the mid septum. There is also some oozing on the anterior face of the inferior turbinate. There are no mucosal lesions. The middle turbinate is normal. Procedure for control of left epistaxis: After the left nasal packing was removed, the left nasal cavity was sprayed with oxymetazoline/lidocaine nasal topical spray. Then using silver nitrate sticks the area of oozing in the superior septum was cauterized and there was no further bleeding. I also cauterized the anterior face of the inferior turbinates where there was some oozing and there was resolution of the reading. Then using the 0 degree rigid endoscope the left nasal cavity was inspected. There is found to be no bleeding anteriorly along the septum or the inferior turbinate. The patient did have a left septal deviation so the scope was difficult to pass all the way posteriorly. There were no mucosal lesions or polyps seen. The right nasal cavity was also inspected with the 0 degree rigid endoscope. There were no mucosal lesions. There is no active bleeding. The scope was able to be passed all the way to the nasopharynx there was some old blood in the nasopharynx but no active bleeding. Reinspection of the patient's oral pharynx showed some bright red blood along the left posterior pharyngeal wall. At this point a 7.5 cm Rhino Rocket was placed in the left nares and inflated to 6 cm of water. Reinspection of the oropharynx showed no further bleeding in the oropharynx. She tolerated the procedure well. There was no bleeding anteriorly in the left nasal cavity. Oropharynx, oral cavity: Normal lips. Very poor dentition with multiple missing teeth. The tongue is normal and mobile. The hard and soft palate are normal. The posterior pharynx is dry. there is no active bleeding seen. The floor of mouth is soft. The buccal mucosa is normal. Neck: Supple, no lymphadenopathy or masses. The trachea is midline. The thyroid is not enlarged. Exam Initial Vital Signs Temp Pulse Resp BP Pulse Ox 98.1 F 138 16 123/65 99 05/22/18 19:13 05/22/18 19:13 05/22/18 19:13 05/22/18 19:13 05/22/18 19:13 Results - Labs 05/23/18 09:41 05/23/18 01:12 Abnormal lab results RBC 2.49 M/mcL (4.19-5.50) L 05/23/18 09:41 Hgb 8.4 g/dL (12.9-16.9) L 05/23/18 09:41 Hct 24.7 % (37.5-50.1) L 05/23/18 09:41 MCH 33.7 pg (28.0-33.3) H 05/23/18 09:41 Plt Count 87 K/mcL (140-400) L 05/23/18 09:41 Immature Plt Fraction 8.1 % (1.1-6.1) H 05/23/18 09:41 PT 19.5 Seconds (9.4-12.1) H 05/23/18 06:40 Sodium 129 mEq/L (136-145) L 05/23/18 01:12 Chloride 93 mEq/L (98-107) L 05/23/18 01:12 BUN 21 mg/dL (6-20) H 05/23/18 01:12 Creatinine 0.55 mg/dL (0.70-1.30) L 05/23/18 01:12 BUN/Creatinine Ratio 38 (6-26) H 05/23/18 01:12 Calculated Osmolality 271 (280-300) L 05/23/18 01:12 Calcium 8.2 mg/dL (8.6-10.3) L 05/23/18 01:12 Total Bilirubin 1.1 mg/dL (0.3-1.0) H 05/23/18 01:12 Direct Bilirubin 0.3 mg/dL (0.0-0.2) H 05/23/18 01:12 AST 41 Units/L (13-39) H 05/23/18 01:12 Alkaline Phosphatase 31 Units/L (34-104) L 05/23/18 01:12 Serum Total Protein 5.8 g/dL (6.4-8.9) L 05/23/18 01:12 Globulin 2.1 g/dL (2.4-3.5) L 05/23/18 01:12 Urine Glucose (UA) 100 mg/dL (Normal) H 05/22/18 22:41 Urine Ketones 40 mg/dL (Negative) H 05/22/18 22:41 Stool Occult Blood Positive (Negative) A 05/23/18 03:00 Ethyl Alcohol 12 mg/dL (Less than 10) H 05/22/18 19:34 Diabetes panel 05/23/18 Range/Units 01:12 Sodium 129 L (136-145) mEq/L Potassium 4.3 D (3.5-5.1) mEq/L Chloride 93 L (98-107) mEq/L Carbon Dioxide 27 (23-29) mEq/L BUN 21 H (6-20) mg/dL Creatinine 0.55 L (0.70-1.30) mg/dL Glucose 99 (70-105) mg/dL Calcium 8.2 L (8.6-10.3) mg/dL AST 41 H (13-39) Units/L ALT 29 (7-52) Units/L Alkaline Phosphatase 31 L (34-104) Units/L Albumin 3.7 (3.5-5.7) g/dL Calcium panel 05/23/18 Range/Units 01:12 Calcium 8.2 L (8.6-10.3) mg/dL Albumin 3.7 (3.5-5.7) g/dL Pituitary panel 05/23/18 Range/Units 01:12 Sodium 129 L (136-145) mEq/L Potassium 4.3 D (3.5-5.1) mEq/L Chloride 93 L (98-107) mEq/L Carbon Dioxide 27 (23-29) mEq/L BUN 21 H (6-20) mg/dL Creatinine 0.55 L (0.70-1.30) mg/dL Glucose 99 (70-105) mg/dL Calcium 8.2 L (8.6-10.3) mg/dL Adrenal panel 05/23/18 Range/Units 01:12 Sodium 129 L (136-145) mEq/L Potassium 4.3 D (3.5-5.1) mEq/L Chloride 93 L (98-107) mEq/L Carbon Dioxide 27 (23-29) mEq/L BUN 21 H (6-20) mg/dL Creatinine 0.55 L (0.70-1.30) mg/dL Glucose 99 (70-105) mg/dL Calcium 8.2 L (8.6-10.3) mg/dL Total Bilirubin 1.1 H (0.3-1.0) mg/dL AST 41 H (13-39) Units/L ALT 29 (7-52) Units/L Alkaline Phosphatase 31 L (34-104) Units/L Albumin 3.7 (3.5-5.7) g/dL All other labs normal. Consult Discharge Plan - Plan Referrals: Alyssia Villanueva, [employer] [Primary Care Provider] - (Your appointment has been webrequested. Our offices will call you with an appointment time and date. )
[2018-05-24] MEDS: 0.9 % Sodium Chloride w KCl 40 MEQ/1,000 ML MLS IVC SCH ×3 (01:20→23:25)
[2018-05-24] MEDS: Nicotine 21 MG PATCH.TD24 TD SCH (07:57)
[2018-05-24] MEDS: Thiamine (B-1) 100 MG TABLET PO SCH (07:58)
[2018-05-24] MEDS: Multivit/Ca/Min/Fe/FA 1 TAB TABLET PO SCH (07:58)
[2018-05-24] MEDS: Folic Acid 1 MG TABLET PO SCH (07:58)
[2018-05-24] MEDS: cephALEXin 500 MG CAPSULE PO SCH ×2 (08:21→20:03)
[2018-05-24 10:01] LABS: Mean Corpuscular Volume 98.2 fL (83.0-100.0)
[2018-05-24 10:03] LABS: Hematocrit 21.5 % (37.5-50.1); Hemoglobin 7.4 g/dL (12.9-16.9); Immature Platelets 8.1 % (1.1-6.1); Mean Corpuscular HGB Conc 34.4 g/dL (31.6-35.5); Mean Corpuscular Hemoglobin 33.8 pg (28.0-33.3); Mean Platelet Volume 10.5 fL (9.4-12.4); Red Blood Count 2.19 M/mcL (4.19-5.50); Red Cell Distribution Width 13.7 % (11.5-14.5)
[2018-05-24 10:29] LABS: BUN/Creatinine Ratio 10 (6-26); Blood Urea Nitrogen 5 mg/dL (6-20); Calcium 8.3 mg/dL (8.6-10.3); Carbon Dioxide 24 mEq/L (23-29); Chloride 96 mEq/L (98-107); Glucose 114 mg/dL (70-105); Osmolality,Calculated 260 (280-300); Potassium 3.5 mEq/L (3.5-5.1); Sodium 126 mEq/L (136-145); eGFR For Non-African Americans > 60 (> 60)
--- NOTE | 2018-05-24 11:44 | Internal Med Progress Note ---
Hospitalist Progress Note - Encounter Date of Encounter: 05/24/18 Time of Encounter: 11:42 - Subjective Interval History: Pt seen and examined in the room. He has no further nose bleeding. Rhino rocket in place. No hemoptysis or hematemsis. - Exam Vitals: Temp Pulse Resp BP Pulse Ox 98.5 F 102 17 116/76 100 05/24/18 08:03 05/24/18 08:03 05/24/18 08:03 05/24/18 08:03 05/24/18 08:03 Exam: PHYSICAL EXAMINATION: GENERAL APPEARANCE: The patient is alert, oriented and in no acute distress. HEENT: Head is normocephalic. The sinuses are nontender. Pupils are equal and reactive. nasal packing in place. NECK: Supple without lymphadenopathy. HEART: Regular rate and rhythm. LUNGS: No crackles or wheezes are heard. ABDOMEN: Soft, nontender, nondistended with good bowel sounds heard. Inguinal area is normal. EXTREMITIES: Without cyanosis, clubbing or edema. NEUROLOGICAL: Gross nonfocal. SKIN: Warm and dry without any rash. - Assessment and Plan (1) GI bleed Current Visit: Yes Status: Suspected Assessment and Plan: 47 year old male with history of chronic DVT on Coumadin presented with epistaxis and the hematemesis. He also has positive guaiac stool, GI was consulted, he was suspected due to epistaxis and the patient swallowed the blood. EGD was initially planned by was canceled. Coumadin was on hold. ENT was consulted, bleeding site was cauterized, a Rhino Rocket was placed, epistaxis ceased after the procedure. - Serial H/H showed continue dropping hemoglobin, Hgb this morning 7.4, no active bleeding witnessed, the dropping hemoglobin likely due to dilutional effect of IV fluid, however, will continue monitoring H/H. Patient is status post 1 unit PRBC transfusion. - Advance diet to soft. (2) Chronic alcoholism Current Visit: Yes Status: Chronic Assessment and Plan: Patient has no signs/symptoms of withdrawal, continue daily thiamine and folate. Continue CIWA scale. (3) Anemia Current Visit: Yes Status: Chronic Assessment and Plan: due to iron deficiency and malnutrition, We will continue with folic acid and iron Tablet (4) Hyponatremia Current Visit: Yes Status: Acute Assessment and Plan: Sodium is remaining low at 129 but improved over yesterday with chlorides elevated to 93 from 83. We will restart IV fluids at 100 mL per 0.9% (5) Left-sided epistaxis Current Visit: Yes Status: Acute Assessment and Plan: Bleeding site cauterized and packed by ENT. Coumadin was on hold. Oral Keflex was ordered per ENT recommendation. No active bleeding right now, continue monitoring H/H. (6) Hypokalemia Current Visit: Yes Status: Resolved (7) Dizziness Current Visit: Yes Status: Acute Assessment and Plan: Denies dizziness headache or shortness of breath, continue IV fluid, continue monitoring H/H, transfuse if indicated. (8) DVT prophylaxis Current Visit: Yes Status: Acute Assessment and Plan: Continue per protocol - Time Spent with Patient Total time spent is greater than 50% in coordination of care (as documented) at patient's floor/unit and/or counseling patient: Greater than 35 minutes Plan of Care Discussed with: patient Internal Medicine: Result - Labs CBC & Chem 7: 05/24/18 09:37 05/24/18 09:37 Labs: Short CBC 05/24/18 Range/Units 09:37 WBC 6.5 (4.3-11.1) K/mcL Hgb 7.4 L (12.9-16.9) g/dL Hct 21.5 L (37.5-50.1) % Plt Count 83 L (140-400) K/mcL BMP 05/24/18 09:37 Sodium 126 L Potassium 3.5 Chloride 96 L Carbon Dioxide 24 BUN 5 L Creatinine 0.50 L Glucose 114 H Calcium 8.3 L - ABG Interpretation ABG results: PT/INR, D-dimer PT 19.5 Seconds (9.4-12.1) H 05/23/18 06:40 Consult Discharge Plan - Plan Referrals: Louisa Oquendo CNP [Advanced Practice Nurse] - 05/27/18 11:00 am Alyssia Villanueva CNP [Primary Care Provider] - 05/28/18 10:20 am () (1) GI bleed Qualifiers: GI bleed type/associated pathology: unspecified gastrointestinal hemorrhage type Qualified Code(s): K92.2 - Gastrointestinal hemorrhage, unspecified (3) Anemia Qualifiers: Anemia type: iron deficiency Iron deficiency anemia type: chronic blood loss Qualified Code(s): D50.0 - Iron deficiency anemia secondary to blood loss ( chronic)
[2018-05-24] MEDS ORDERED: *HR* LORazepam 1 MG TABLET PO ONE (20:25)
[2018-05-25 05:24] LABS: Hematocrit 19.6 % (37.5-50.1); Hemoglobin 6.9 g/dL (12.9-16.9); Immature Platelets 7.8 % (1.1-6.1); Mean Corpuscular HGB Conc 35.2 g/dL (31.6-35.5); Mean Corpuscular Hemoglobin 33.7 pg (28.0-33.3); Mean Corpuscular Volume 95.6 fL (83.0-100.0); Red Blood Count 2.05 M/mcL (4.19-5.50); Red Cell Distribution Width 12.8 % (11.5-14.5)
[2018-05-25 05:39] LABS: BUN/Creatinine Ratio 9 (6-26); Blood Urea Nitrogen 4 mg/dL (6-20); Calcium 8.5 mg/dL (8.6-10.3); Carbon Dioxide 26 mEq/L (23-29); Chloride 92 mEq/L (98-107); Glucose 130 mg/dL (70-105); Osmolality,Calculated 259 (280-300); Potassium 2.7 mEq/L (3.5-5.1); Sodium 125 mEq/L (136-145); eGFR For Non-African Americans > 60 (> 60)
[2018-05-25] MEDS ORDERED: 0.9 % Sodium Chloride 500 ML ONE (09:00)
[2018-05-25] MEDS: Thiamine (B-1) 100 MG TABLET PO SCH (09:56)
[2018-05-25] MEDS: Nicotine 21 MG PATCH.TD24 TD SCH (09:56)
[2018-05-25] MEDS: Folic Acid 1 MG TABLET PO SCH (09:56)
[2018-05-25] MEDS: cephALEXin 500 MG CAPSULE PO SCH ×2 (09:56→20:22)
[2018-05-25] MEDS: Multivit/Ca/Min/Fe/FA 1 TAB TABLET PO SCH (09:56)
--- NOTE | 2018-05-25 11:37 | Internal Med Progress Note ---
Hospitalist Progress Note - Encounter Date of Encounter: 05/25/18 Time of Encounter: 11:35 - Subjective Interval History: Pt seen and examined in the room. He has no further nose bleeding. Rhino rocket in place. No hemoptysis or hematemsis. - Exam Vitals: Temp Pulse Resp BP Pulse Ox 98.1 F 99 16 105/67 100 05/25/18 11:25 05/25/18 11:25 05/25/18 11:25 05/25/18 11:25 05/25/18 11:25 Exam: PHYSICAL EXAMINATION: GENERAL APPEARANCE: The patient is alert, oriented and in no acute distress. HEENT: Head is normocephalic. The sinuses are nontender. Pupils are equal and reactive. nasal packing in place. NECK: Supple without lymphadenopathy. HEART: Regular rate and rhythm. LUNGS: No crackles or wheezes are heard. ABDOMEN: Soft, nontender, nondistended with good bowel sounds heard. Inguinal area is normal. EXTREMITIES: Without cyanosis, clubbing or edema. NEUROLOGICAL: Gross nonfocal. SKIN: Warm and dry without any rash. - Assessment and Plan (1) GI bleed Current Visit: Yes Status: Suspected Assessment and Plan: 47 year old male with history of chronic DVT on Coumadin presented with epistaxis and the hematemesis. He also has positive guaiac stool, GI was consulted, he was suspected due to epistaxis and the patient swallowed the blood. EGD was initially planned by was canceled. Coumadin was on hold. ENT was consulted, bleeding site was cauterized, a Rhino Rocket was placed, epistaxis ceased after the procedure. - Serial H/H showed continue dropping hemoglobin, Hgb this morning 6.9, no active bleeding witnessed, Pt already received one unit of PRBC since admission , will give another unit of PRBC, continue to monitor H/H. - Advance diet to soft. (2) Chronic alcoholism Current Visit: Yes Status: Chronic Assessment and Plan: Patient has no signs/symptoms of withdrawal, continue daily thiamine and folate. Continue CIWA scale. (3) Anemia Current Visit: Yes Status: Chronic Assessment and Plan: due to iron deficiency and malnutrition, We will continue with folic acid and iron tablet (4) Hyponatremia Current Visit: Yes Status: Acute Assessment and Plan: improving, continue monitoring and push oral intake. (5) Left-sided epistaxis Current Visit: Yes Status: Acute Assessment and Plan: Bleeding site cauterized and packed by ENT. Coumadin was on hold. Oral Keflex was ordered per ENT recommendation. No active bleeding right now, continue monitoring H/H. (6) Hypokalemia Current Visit: Yes Status: Acute Assessment and Plan: K 2.7, 40 mEQ KCL ordered, will monitor. (7) Dizziness Current Visit: Yes Status: Acute Assessment and Plan: Denies dizziness headache or shortness of breath, Hgb 6.9 this morning, one unit PRBC ordered. (8) DVT prophylaxis Current Visit: Yes Status: Acute Assessment and Plan: Continue per protocol - Time Spent with Patient Total time spent is greater than 50% in coordination of care (as documented) at patient's floor/unit and/or counseling patient: Greater than 35 minutes Plan of Care Discussed with: patient Internal Medicine: Result - Labs CBC & Chem 7: 05/25/18 04:03 05/25/18 04:03 - ABG Interpretation ABG results: PT/INR, D-dimer PT 19.5 Seconds (9.4-12.1) H 05/23/18 06:40 - VTE Documentation of Mechanical Device: Graduated compression elastic hosiery Consult Discharge Plan - Plan Referrals: Louisa Oquendo CNP [Advanced Practice Nurse] - 05/27/18 11:00 am Alyssia Villanueva CNP [Primary Care Provider] - 05/28/18 10:20 am () (1) GI bleed Qualifiers: GI bleed type/associated pathology: unspecified gastrointestinal hemorrhage type Qualified Code(s): K92.2 - Gastrointestinal hemorrhage, unspecified (3) Anemia Qualifiers: Anemia type: iron deficiency Iron deficiency anemia type: chronic blood loss Qualified Code(s): D50.0 - Iron deficiency anemia secondary to blood loss ( chronic)
[2018-05-26 03:43] LABS: Mean Corpuscular Hemoglobin 32.8 pg (28.0-33.3)
[2018-05-26 03:44] LABS: Hemoglobin 8.2 g/dL (12.9-16.9); Immature Platelets 8.3 % (1.1-6.1); Mean Corpuscular HGB Conc 35.7 g/dL (31.6-35.5); Red Blood Count 2.5 M/mcL (4.19-5.50); Red Cell Distribution Width 14.8 % (11.5-14.5)
[2018-05-26 04:01] LABS: BUN/Creatinine Ratio 8 (6-26); Blood Urea Nitrogen 4 mg/dL (6-20); Calcium 8.5 mg/dL (8.6-10.3); Carbon Dioxide 26 mEq/L (23-29); Chloride 94 mEq/L (98-107); Glucose 143 mg/dL (70-105); Osmolality,Calculated 265 (280-300); Potassium 2.6 mEq/L (3.5-5.1); Sodium 128 mEq/L (136-145); eGFR For Non-African Americans > 60 (> 60)
[2018-05-26 07:00] VITALS: BP 120/79
[2018-05-26] MEDS ORDERED: 0.9 % Sodium Chloride w KCl 40 MEQ/1,000 ML MLS IVC SCH (08:00)
[2018-05-26] MEDS: Multivit/Ca/Min/Fe/FA 1 TAB TABLET PO SCH (08:19)
[2018-05-26] MEDS: Folic Acid 1 MG TABLET PO SCH (08:19)
[2018-05-26] MEDS: Thiamine (B-1) 100 MG TABLET PO SCH (08:19)
[2018-05-26] MEDS: Nicotine 21 MG PATCH.TD24 TD SCH (08:19)
[2018-05-26] MEDS ORDERED: cephALEXin 500 MG CAPSULE PO SCH (09:00)
--- NOTE | 2018-05-26 09:35 | Internal Med Progress Note ---
Hospitalist Progress Note - Encounter Date of Encounter: 05/26/18 Time of Encounter: 09:33 - Subjective Interval History: Pt seen and examined in the room. He has no further nose bleeding. Rhino rocket in place. No hemoptysis or hematemsis. - Exam Vitals: Temp Pulse Resp BP Pulse Ox 97.9 F 90 16 120/79 100 05/26/18 06:59 05/26/18 06:59 05/26/18 06:59 05/26/18 06:59 05/26/18 06:59 Exam: PHYSICAL EXAMINATION: GENERAL APPEARANCE: The patient is alert, oriented and in no acute distress. HEENT: Head is normocephalic. The sinuses are nontender. Pupils are equal and reactive. nasal packing in place. NECK: Supple without lymphadenopathy. HEART: Regular rate and rhythm. LUNGS: No crackles or wheezes are heard. ABDOMEN: Soft, nontender, nondistended with good bowel sounds heard. Inguinal area is normal. EXTREMITIES: Without cyanosis, clubbing or edema. NEUROLOGICAL: Gross nonfocal. SKIN: Warm and dry without any rash. - Assessment and Plan (1) GI bleed Current Visit: Yes Status: Suspected Assessment and Plan: 47 year old male with history of chronic DVT on Coumadin presented with epistaxis and the hematemesis. He also has positive guaiac stool, GI was consulted, he was suspected due to epistaxis and the patient swallowed the blood. EGD was initially planned by was canceled. Coumadin was on hold. ENT was consulted, bleeding site was cauterized, a Rhino Rocket was placed, epistaxis ceased after the procedure. - Serial H/H showed continue dropping hemoglobin, Hgb this morning 6.9, no active bleeding witnessed, Pt already received one unit of PRBC since admission , will give another unit of PRBC. Hgb 8.2 this am. - Advance diet to regular. (2) Chronic alcoholism Current Visit: Yes Status: Chronic Assessment and Plan: Patient has no signs/symptoms of withdrawal, continue daily thiamine and folate. Continue CIWA scale. (3) Anemia Current Visit: Yes Status: Chronic Assessment and Plan: due to iron deficiency and malnutrition, We will continue with folic acid and iron tablet (4) Hyponatremia Current Visit: Yes Status: Acute Assessment and Plan: improving, continue monitoring and push oral intake. (5) Left-sided epistaxis Current Visit: Yes Status: Acute Assessment and Plan: Bleeding site cauterized and packed by ENT. Coumadin was on hold. Oral Keflex was ordered per ENT recommendation. No active bleeding right now, continue monitoring H/H. (6) Hypokalemia Current Visit: Yes Status: Acute Assessment and Plan: K 2.7 yesterday, received 40 mEQ KCL. this morning K 2.6, 0.9 NS +40 K@100 ml/h per IV ordered, oral KCL 40 mg BID for 2 days.repeat BMP in am. (7) Dizziness Current Visit: Yes Status: Acute Assessment and Plan: Denies dizziness headache or shortness of breath. (8) DVT prophylaxis Current Visit: Yes Status: Acute Assessment and Plan: Continue per protocol - Time Spent with Patient Total time spent is greater than 50% in coordination of care (as documented) at patient's floor/unit and/or counseling patient: Greater than 35 minutes Plan of Care Discussed with: patient Internal Medicine: Result - Labs CBC & Chem 7: 05/26/18 02:43 05/26/18 02:43 Labs: Short CBC 05/26/18 Range/Units 02:43 WBC 4.5 (4.3-11.1) K/mcL Hgb 8.2 L (12.9-16.9) g/dL Hct 23.0 L (37.5-50.1) % Plt Count 92 L (140-400) K/mcL BMP 05/26/18 02:43 Sodium 128 L Potassium 2.6 L Chloride 94 L Carbon Dioxide 26 BUN 4 L Creatinine 0.51 L Glucose 143 H Calcium 8.5 L - ABG Interpretation ABG results: PT/INR, D-dimer PT 19.5 Seconds (9.4-12.1) H 05/23/18 06:40 - VTE Documentation of Mechanical Device: Graduated compression elastic hosiery Consult Discharge Plan - Plan Referrals: Louisa Oquendo CNP [Advanced Practice Nurse] - 05/27/18 11:00 am Alyssia Villanueva CNP [Primary Care Provider] - 05/28/18 10:20 am () (1) GI bleed Qualifiers: GI bleed type/associated pathology: unspecified gastrointestinal hemorrhage type Qualified Code(s): K92.2 - Gastrointestinal hemorrhage, unspecified (3) Anemia Qualifiers: Anemia type: iron deficiency Iron deficiency anemia type: chronic blood loss Qualified Code(s): D50.0 - Iron deficiency anemia secondary to blood loss ( chronic)
--- NOTE | 2018-05-26 11:18 | Event Note ---
Date of Encounter: 05/26/18 Time of Encounter: 11:15 Pt left AMA. I briefly talked to him before he left, instructed to go see Dr. Baeza within 3 days for nasal packing removal, and discussing about resuming coumadin, take antibiotics for 3 more day until seen by Dr. Baeza. continue taking potassium pills and check BMP in PCP office within a week. Pt verbally understood.
--- NOTE | 2018-05-26 20:47 | Electrocardiograph Report ---
[address] [address] Test Date: 2018-05-22 Pat Name: Michael Bell Department: [id number] Room: 3B14 Gender: M [employer]: : 1970 Requested By: Abelino Diaz Order Number: [id number] Reading MD: Zacarias Gonzalez Measurements Intervals [place] Rate: 131 P: 52 DC: 134 QRS: 79 QRSD: 88 T: 44 QT: 311 QTc: 460 Interpretive Statements Sinus tachycardia Significant artifact No obvious significant ST-T changes Consider repeat ECG Electronically Signed On 05-26-2018 20:45:29 EDT by Zacarias Gonzalez
== END 2018-05-26 11:06 | disposition left against medical advice (07) | DRG 982 ==
LOC: EMEROOARM 19:09 → 3BNU 19:09
PROVIDERS: ADMIT Internal Medicine; ATTEND Internal Medicine

== ENCOUNTER 2019-09-26 22:20 | Inpatient (IN) ==
[2019-09-26] MEDS ORDERED: 0.9 % Sodium Chloride 1,000 ML IVC ONE (22:40)
[2019-09-26] MEDS ORDERED: Pantoprazole 40 MG VIAL IVP ONE (22:40)
[2019-09-26 23:39] LABS: Basophils # 0.1 K/mcL (0.0-0.2); Basophils % 1.3 %; Eosinophils % 0.5 %; Hematocrit 26.6 % (37.5-50.1); Immature Granulocytes % 0.3 % (0-4); Lymphocytes # 1.2 K/mcL (0.6-4.6); Lymphocytes % 31.7 %; Mean Corpuscular HGB Conc 33.8 g/dL (31.6-35.5); Mean Corpuscular Hemoglobin 33.3 pg (28.0-33.3); Mean Corpuscular Volume 98.5 fL (83.0-100.0); Mean Platelet Volume 9.2 fL (9.4-12.4); Monocytes # 0.4 K/mcL (0.0-1.3); Monocytes % 11.2 %; Neutrophils # 2.1 K/mcL (1.6-8.9); Platelet Count 166 K/mcL (140-400); Red Cell Distribution Width 12.8 % (11.5-14.5); White Blood Count 3.8 K/mcL (4.3-11.1)
[2019-09-26 23:46] LABS: BUN/Creatinine Ratio 15 (6-26); Blood Urea Nitrogen 7 mg/dL (6-20); Calcium 8.9 mg/dL (8.6-10.3); Carbon Dioxide 23 mEq/L (23-29); Chloride 91 mEq/L (98-107); Glucose 85 mg/dL (70-105); Osmolality,Calculated 257 (280-300); Potassium 3.8 mEq/L (3.5-5.1); Sodium 125 mEq/L (136-145); eGFR For African Americans > 60 (> 60); eGFR For Non-African Americans > 60 (> 60)
[2019-09-26 23:55] LABS: Activated Partial Thrombo Time 57.3 Seconds (26.0-36.0)
[2019-09-27 00:03] LABS: INR 7.3; Prothrombin Time 82.9 Seconds (9.4-12.1)
[2019-09-27] MEDS ORDERED: *HR* LORazepam 2 MG/ML VIAL IVP ONE (00:06)
[2019-09-27] MEDS ORDERED: 0.9 % Sodium Chloride 1,000 ML IVC SCH (01:30)
[2019-09-27] MEDS ORDERED: *HR* LORazepam 2 MG/ML VIAL IVP PRN ×3 (01:36)
[2019-09-27] MEDS ORDERED: Isovue-370 500 ML BOTTLE IVP ONE (02:46)
[2019-09-27] MEDS: Pantoprazole 40 MG VIAL IVP SCH ×2 (05:20→17:42)
[2019-09-27 06:12] LABS: Basophils # 0.1 K/mcL (0.0-0.2); Basophils % 1.4 %; Eosinophils # 0.1 K/mcL (0.0-0.6); Eosinophils % 1.2 %; Hematocrit 26.4 % (37.5-50.1); Hemoglobin 8.9 g/dL (12.9-16.9); Immature Granulocytes % 0.7 % (0-4); Lymphocytes # 1.1 K/mcL (0.6-4.6); Lymphocytes % 25.9 %; Mean Corpuscular HGB Conc 33.7 g/dL (31.6-35.5); Mean Corpuscular Hemoglobin 33.7 pg (28.0-33.3); Mean Platelet Volume 9.4 fL (9.4-12.4); Monocytes # 0.5 K/mcL (0.0-1.3); Monocytes % 12.2 %; Neutrophils # 2.4 K/mcL (1.6-8.9); Platelet Count 163 K/mcL (140-400); Red Blood Count 2.64 M/mcL (4.19-5.50); Red Cell Distribution Width 12.9 % (11.5-14.5); Segmented Neutrophils % 58.6 %; White Blood Count 4.2 K/mcL (4.3-11.1)
[2019-09-27 06:21] LABS: INR 2.8; Prothrombin Time 32.2 Seconds (9.4-12.1)
[2019-09-27 06:33] LABS: Alanine Aminotransferase 13 Units/L (7-52); Albumin 3.4 g/dL (3.5-5.7); Albumin/Globulin Ratio 1.5 (1.1-2.2); Alkaline Phosphatase 39 Units/L (34-104); Aspartate Amino Transferase 30 Units/L (13-39); BUN/Creatinine Ratio 17 (6-26); Bilirubin,Total 0.9 mg/dL (0.3-1.0); Blood Urea Nitrogen 8 mg/dL (6-20); Calcium 8.5 mg/dL (8.6-10.3); Carbon Dioxide 26 mEq/L (23-29); Chloride 97 mEq/L (98-107); Globulin 2.2 g/dL (2.4-3.5); Glucose 79 mg/dL (70-105); Osmolality,Calculated 271 (280-300); Phosphorous 4.4 mg/dL (2.7-4.5); Potassium 4.1 mEq/L (3.5-5.1); Sodium 132 mEq/L (136-145); Total Protein 5.6 g/dL (6.4-8.9); eGFR For African Americans > 60 (> 60); eGFR For Non-African Americans > 60 (> 60)
[2019-09-27 06:34] LABS: % Iron Saturation 58 % (20-55); Iron 193 mcg/dL (65-175); Transferrin 237 mg/dL (203-362)
[2019-09-27 06:51] LABS: Ferritin 37 ng/mL (20-250)
[2019-09-27] MEDS ORDERED: *HR* Phytonadione 10 MG/ML AMPUL SQ ONE (11:08)
[2019-09-27] MEDS: Ondansetron 4 MG/2 ML VIAL IVP SCH ×3 (12:04→23:43)
[2019-09-27] MEDS: Acetaminophen 325 MG TABLET PO PRN ×2 (14:15→21:48)
[2019-09-27] MEDS: Metoprolol XL (24 HR) Succ 25 MG TAB.ER.24H PO SCH (16:01)
[2019-09-27] MEDS ORDERED: Thiamine (B-1) 100 MG, Folic Acid 1 MG, MVI, adult with vitamin K 10 ML in 0.9 % Sodi... IVPB SCH (18:00)
[2019-09-28] MEDS: Pantoprazole 40 MG VIAL IVP SCH (06:08)
[2019-09-28] MEDS: Ondansetron 4 MG/2 ML VIAL IVP SCH ×2 (06:08→13:35)
[2019-09-28 07:53] LABS: Eosinophils # 0.1 K/mcL (0.0-0.6); Eosinophils % 1.9 %; Hematocrit 25.9 % (37.5-50.1); Hemoglobin 8.9 g/dL (12.9-16.9); Immature Granulocytes % 0.3 % (0-4); Lymphocytes % 32.2 %; Mean Corpuscular HGB Conc 34.4 g/dL (31.6-35.5); Mean Corpuscular Volume 98.9 fL (83.0-100.0); Mean Platelet Volume 9.9 fL (9.4-12.4); Monocytes # 0.4 K/mcL (0.0-1.3); Monocytes % 13.1 %; Neutrophils # 1.6 K/mcL (1.6-8.9); Platelet Count 171 K/mcL (140-400); Red Blood Count 2.62 M/mcL (4.19-5.50); Segmented Neutrophils % 51.5 %; White Blood Count 3.1 K/mcL (4.3-11.1)
[2019-09-28 08:04] LABS: INR 1.1; Prothrombin Time 12.1 Seconds (9.4-12.1)
[2019-09-28 08:10] LABS: BUN/Creatinine Ratio 5 (6-26); Blood Urea Nitrogen 3 mg/dL (6-20); Calcium 8.7 mg/dL (8.6-10.3); Carbon Dioxide 28 mEq/L (23-29); Chloride 97 mEq/L (98-107); Glucose 94 mg/dL (70-105); Magnesium 1.8 mg/dL (1.6-2.6); Osmolality,Calculated 274 (280-300); Potassium 3.1 mEq/L (3.5-5.1); Sodium 134 mEq/L (136-145); eGFR For African Americans > 60 (> 60); eGFR For Non-African Americans > 60 (> 60)
[2019-09-28] MEDS ORDERED: Propofol 500 MG/50 ML INFUS..BTL ONE (08:56)
[2019-09-28] MEDS ORDERED: Lidocaine -MPF 2% 2 ML VIAL ONE (08:58)
[2019-09-28] MEDS ORDERED: Folic Acid 1 MG TABLET PO SCH (09:00)
[2019-09-28] MEDS ORDERED: Multivit/Ca/Min/Fe/FA 1 TAB TABLET PO SCH (09:00)
[2019-09-28] MEDS ORDERED: *HR* PHENYLEPHRINE 1,000 MCG/10 ML SYRINGE IVP ONE (09:29)
[2019-09-28] MEDS: Metoprolol XL (24 HR) Succ 25 MG TAB.ER.24H PO SCH (11:00)
[2019-09-28 11:16] VITALS: BP 122/76
== END 2019-09-28 13:35 | disposition home or self-care (01) | DRG 377 ==
LOC: 3ANU 22:20 → EMEROOARM 22:20 → SUATTDRO 09-27 00:32 → 3ANU 09-27 01:06
PROVIDERS: ADMIT Student in an Organized Health Care Education/Training Program; ATTEND Pharmacist
PROC: ENDOEBX (2019-09-28 10:15)

== ENCOUNTER 2021-07-19 19:05 | Inpatient (IN) ==
[2021-07-19] MEDS ORDERED: *HR* LORazepam 2 MG/ML VIAL IVP PRN ×2 (19:54→21:44)
[2021-07-19 19:57] LABS: Red Cell Distribution Width 13.2 % (11.5-14.5)
[2021-07-19 19:58] LABS: Immature Granulocytes % 2.5 % (0-4); Lymphocytes # 0.8 K/mcL (0.6-4.6); Lymphocytes % 6.7 %; Mean Corpuscular HGB Conc 34.3 g/dL (31.6-35.5); Mean Corpuscular Hemoglobin 34.8 pg (28.0-33.3); Mean Corpuscular Volume 101.4 fL (83.0-100.0); Mean Platelet Volume 9.6 fL (9.4-12.4); Monocytes # 1.4 K/mcL (0.0-1.3); Monocytes % 11.7 %; Neutrophils # 9.2 K/mcL (1.6-8.9); Nucleated Red Blood Cells 0.4 /100 WBC (0); Platelet Count 295 K/mcL (140-400); Red Blood Count 1.41 M/mcL (4.19-5.50); Segmented Neutrophils % 79.1 %; White Blood Count 11.6 K/mcL (4.3-11.1)
[2021-07-19] MEDS ORDERED: Thiamine (B-1) 100 MG, Folic Acid 1 MG, MVI, adult with vitamin K 10 ML in 0.9 % Sodi... IVPB ONE (20:05)
[2021-07-19 20:11] LABS: INR 1.3; Prothrombin Time 14.9 Seconds (9.4-12.1)
[2021-07-19 20:32] LABS: Alanine Aminotransferase 29 Units/L (7-52); Albumin 2.9 g/dL (3.5-5.7); Albumin/Globulin Ratio 1.3 (1.1-2.2); Alkaline Phosphatase 57 Units/L (34-104); Aspartate Amino Transferase 64 Units/L (13-39); BUN/Creatinine Ratio 13 (6-26); Bilirubin,Total 0.9 mg/dL (0.3-1.0); Blood Urea Nitrogen 8 mg/dL (6-20); Calcium 8.3 mg/dL (8.6-10.3); Carbon Dioxide 22 mEq/L (23-29); Chloride 80 mEq/L (98-107); Ethanol < 10 mg/dL (Less than 10); Globulin 2.3 g/dL (2.4-3.5); Glucose 184 mg/dL (70-105); Lipase 56 Units/L (11-82); Osmolality,Calculated 257 (280-300); Potassium 2.9 mEq/L (3.5-5.1); Sodium 122 mEq/L (136-145); Total Protein 5.2 g/dL (6.4-8.9); eGFR For African Americans > 60 (> 60); eGFR For Non-African Americans > 60 (> 60)
[2021-07-19 20:34] LABS: Hematocrit 14.3 % (37.5-50.1); Hemoglobin 4.9 g/dL (12.9-16.9)
[2021-07-19] MEDS ORDERED: Pantoprazole 40 MG VIAL IVP ONE (20:53)
[2021-07-19] MEDS ORDERED: 0.9 % Sodium Chloride 250 ML ONE (20:56)
[2021-07-19 20:57] LABS: VBG HCO3 25 mEq/L (21-27); VBG PCO2 37 mmHg (41-51); VBG PH 7.45 pH Units (7.32-7.42); VBG PO2 58 mmHg (25-50)
[2021-07-19 20:59] LABS: Bilirubin,Urine Negative (Negative); Blood,Urine Negative (Negative); Clarity,Urine Clear (Clear); Color,Urine Light-Yellow (Yellow); Glucose,Urine (UA) Normal (Normal); Ketones,Urine 80 mg/dL (Negative); Leukocyte Esterase,Urine Negative (Negative); Nitrite,Urine Negative (Negative); Protein,Urine Negative (Neg-Trace); Specific Gravity,Urine 1.013 (1.010-1.025); Urobilinogen,Urine Normal (Normal)
[2021-07-19] MEDS: 0.9 % Sodium Chloride 1,000 ML IV ONE ×2 (21:00→21:08)
[2021-07-19 21:26] LABS: Magnesium 1.7 mg/dL (1.6-2.6)
[2021-07-19] MEDS: Octreotide 400 MCG in 0.9 % Sodium Chloride 100 ML IVC SCH (21:33)
[2021-07-19] MEDS ORDERED: Naloxone 0.4 MG/ML INJ IVP PRN (21:39)
[2021-07-19] MEDS ORDERED: Acetaminophen 325 MG TABLET PO PRN (21:39)
[2021-07-19] MEDS ORDERED: *HR* Promethazine 25 MG/ML VIAL IM PRN (21:39)
[2021-07-19] MEDS ORDERED: Ondansetron 4 MG/2 ML VIAL IVP PRN (21:39)
[2021-07-19] MEDS ORDERED: Melatonin 3 MG TABLET PO PRN (21:39)
[2021-07-19] MEDS ORDERED: cefTRIAXone 1,000 MG in Water for inj. (sterile) 10 ML IVP ONE (21:48)
[2021-07-20 00:47] LABS: INR 1.4; Prothrombin Time 15.2 Seconds (9.4-12.1)
[2021-07-20 00:49] LABS: Hematocrit 15.1 % (37.5-50.1); Immature Granulocytes % 1.9 % (0-4); Lymphocytes # 0.8 K/mcL (0.6-4.6); Lymphocytes % 9.7 %; Mean Corpuscular HGB Conc 36.4 g/dL (31.6-35.5); Mean Corpuscular Hemoglobin 35.5 pg (28.0-33.3); Mean Corpuscular Volume 97.4 fL (83.0-100.0); Mean Platelet Volume 9.6 fL (9.4-12.4); Monocytes % 11.8 %; Neutrophils # 6.4 K/mcL (1.6-8.9); Nucleated Red Blood Cells 0.8 /100 WBC (0); Platelet Count 220 K/mcL (140-400); Red Blood Count 1.55 M/mcL (4.19-5.50); Red Cell Distribution Width 12.4 % (11.5-14.5); Segmented Neutrophils % 76.6 %; White Blood Count 8.3 K/mcL (4.3-11.1)
[2021-07-20 00:51] LABS: Hemoglobin 5.5 g/dL (12.9-16.9)
[2021-07-20 00:57] LABS: Alanine Aminotransferase 22 Units/L (7-52); Albumin 2.2 g/dL (3.5-5.7); Albumin/Globulin Ratio 1.2 (1.1-2.2); Alkaline Phosphatase 42 Units/L (34-104); Aspartate Amino Transferase 53 Units/L (13-39); BUN/Creatinine Ratio 15 (6-26); Bilirubin,Direct 0.3 mg/dL (0.0-0.2); Bilirubin,Indirect 0.6 mg/dL (0.0-1.0); Bilirubin,Total 0.9 mg/dL (0.3-1.0); Blood Urea Nitrogen 6 mg/dL (6-20); Calcium 6.7 mg/dL (8.6-10.3); Carbon Dioxide 26 mEq/L (23-29); Chloride 87 mEq/L (98-107); Globulin 1.9 g/dL (2.4-3.5); Glucose 193 mg/dL (70-105); Magnesium 1.7 mg/dL (1.6-2.6); Osmolality,Calculated 261 (280-300); Potassium 2.8 mEq/L (3.5-5.1); Sodium 124 mEq/L (136-145); Total Protein 4.1 g/dL (6.4-8.9); eGFR For African Americans > 60 (> 60); eGFR For Non-African Americans > 60 (> 60)
[2021-07-20 01:02] LABS: BUN/Creatinine Ratio 15 (6-26); Blood Urea Nitrogen 6 mg/dL (6-20); Carbon Dioxide 26 mEq/L (23-29); Chloride 87 mEq/L (98-107); Glucose 190 mg/dL (70-105); Osmolality,Calculated 263 (280-300); Potassium 2.4 mEq/L (3.5-5.1); Sodium 125 mEq/L (136-145); eGFR For African Americans > 60 (> 60); eGFR For Non-African Americans > 60 (> 60)
[2021-07-20] MEDS ORDERED: 0.9 % Sodium Chloride w KCl 40 MEQ/1,000 ML MLS IVC SCH (01:30)
[2021-07-20] MEDS ORDERED: 0.9 % Sodium Chloride 250 ML ONE ×2 (01:49→13:11)
[2021-07-20] MEDS: Pantoprazole 40 MG in 0.9 % Sodium Chloride Mini Bag 100 ML IVC SCH ×4 (02:32→19:59)
[2021-07-20 04:54] LABS: Hematocrit 18.9 % (37.5-50.1); Hemoglobin 6.6 g/dL (12.9-16.9)
[2021-07-20 05:24] LABS: BUN/Creatinine Ratio 13 (6-26); Blood Urea Nitrogen 5 mg/dL (6-20); Calcium 6.9 mg/dL (8.6-10.3); Carbon Dioxide 28 mEq/L (23-29); Chloride 90 mEq/L (98-107); Glucose 149 mg/dL (70-105); Osmolality,Calculated 266 (280-300); Potassium 2.4 mEq/L (3.5-5.1); Sodium 128 mEq/L (136-145); eGFR For African Americans > 60 (> 60); eGFR For Non-African Americans > 60 (> 60)
[2021-07-20] MEDS: Nicotine 21 MG PATCH.TD24 TD SCH (05:40)
[2021-07-20] MEDS ORDERED: D5% in Water 1,000 ML IVC SCH (06:30)
[2021-07-20] MEDS: cefTRIAXone 1,000 MG in Water for inj. (sterile) 10 ML IVP SCH (08:10)
[2021-07-20] MEDS: *HR* HYDROcodone/Acet 5/325 mg TABLET PO PRN (08:24)
[2021-07-20] MEDS ORDERED: Thiamine (B-1) 200 MG in 0.9 % Sodium Chloride 50 ML IVPB SCH (09:00)
[2021-07-20] MEDS ORDERED: Folic Acid 1 MG in 0.9 % Sodium Chloride 50 ML IVPB SCH (09:00)
[2021-07-20] MEDS ORDERED: Calcium Gluconate 1gm/50mL 1 GM/50 ML BAG IVPB ONE (11:11)
[2021-07-20] MEDS: Octreotide 400 MCG in 0.9 % Sodium Chloride 100 ML IVC SCH ×2 (11:21→23:20)
[2021-07-20 13:17] LABS: Folate > 22.3 ng/mL (3.0-16.0); Vitamin B12 445 pg/mL (250-1100)
[2021-07-20 14:20] LABS: BUN/Creatinine Ratio 14 (6-26); Blood Urea Nitrogen 5 mg/dL (6-20); Calcium 6.7 mg/dL (8.6-10.3); Carbon Dioxide 28 mEq/L (23-29); Chloride 93 mEq/L (98-107); Ferritin 97 ng/mL (20-250); Glucose 188 mg/dL (70-105); Iron 20 mcg/dL (65-175); Osmolality,Calculated 264 (280-300); Potassium 3.4 mEq/L (3.5-5.1); Sodium 126 mEq/L (136-145); eGFR For African Americans > 60 (> 60); eGFR For Non-African Americans > 60 (> 60)
[2021-07-20] MEDS ORDERED: *HR* Propofol 200 MG/20 ML VIAL IVP ONE (14:30)
[2021-07-20] MEDS ORDERED: Lidocaine -MPF 2% 5 ML VIAL ONE (14:50)
[2021-07-20] MEDS: Ringers Solution, Lactated 1,000 ML IVC SCH (15:00)
[2021-07-21] MEDS: Pantoprazole 40 MG in 0.9 % Sodium Chloride Mini Bag 100 ML IVC SCH ×4 (01:05→22:49)
[2021-07-21] MEDS: Nicotine 21 MG PATCH.TD24 TD SCH (05:54)
[2021-07-21] MEDS: Folic Acid 1 MG TABLET PO SCH ×2 (07:15→08:18)
[2021-07-21] MEDS: Thiamine (B-1) 100 MG TABLET PO SCH ×2 (07:15→08:18)
[2021-07-21 07:38] LABS: Hematocrit 25.7 % (37.5-50.1); Mean Corpuscular HGB Conc 35.8 g/dL (31.6-35.5); Mean Corpuscular Hemoglobin 33.3 pg (28.0-33.3); Mean Corpuscular Volume 93.1 fL (83.0-100.0); Mean Platelet Volume 8.9 fL (9.4-12.4); Platelet Count 207 K/mcL (140-400); Red Blood Count 2.76 M/mcL (4.19-5.50); Red Cell Distribution Width 13.7 % (11.5-14.5)
[2021-07-21 07:44] LABS: Hemoglobin 9.2 g/dL (12.9-16.9)
[2021-07-21 08:04] LABS: BUN/Creatinine Ratio 13 (6-26); Blood Urea Nitrogen 5 mg/dL (6-20); Calcium 7.2 mg/dL (8.6-10.3); Carbon Dioxide 31 mEq/L (23-29); Chloride 86 mEq/L (98-107); Glucose 116 mg/dL (70-105); Magnesium 1.4 mg/dL (1.6-2.6); Osmolality,Calculated 258 (280-300); Phosphorous < 1.0 mg/dL (2.7-4.5); Potassium 3.1 mEq/L (3.5-5.1); Sodium 125 mEq/L (136-145); eGFR For African Americans > 60 (> 60); eGFR For Non-African Americans > 60 (> 60)
[2021-07-21] MEDS ORDERED: Potassium Phosphate 44 MEQ in 0.9 % Sodium Chloride 250 ML IVPB ONE (08:09)
[2021-07-21] MEDS: cefTRIAXone 1,000 MG in Water for inj. (sterile) 10 ML IVP SCH (08:18)
[2021-07-21] MEDS: Octreotide 400 MCG in 0.9 % Sodium Chloride 100 ML IVC SCH ×3 (08:18→23:54)
[2021-07-21] MEDS: Cholecalciferol (D-3) 1,000 UNIT (25MCG) TABLET PO SCH (08:18)
[2021-07-21] MEDS: Ringers Solution, Lactated 1,000 ML IVC SCH (08:20)
[2021-07-21] MEDS: Iron Sucrose Complex 250 MG in 0.9 % Sodium Chloride 250 ML IVPB SCH (08:21)
[2021-07-21] MEDS ORDERED: 0.9 % Sodium Chloride 1,000 ML IVC SCH (10:15)
[2021-07-21] MEDS: *HR* LORazepam 2 MG/ML VIAL IVP PRN ×2 (12:16→20:58)
[2021-07-22 04:46] LABS: Hematocrit 25.8 % (37.5-50.1); Hemoglobin 8.6 g/dL (12.9-16.9); Mean Corpuscular HGB Conc 33.3 g/dL (31.6-35.5); Mean Corpuscular Hemoglobin 31.9 pg (28.0-33.3); Mean Corpuscular Volume 95.6 fL (83.0-100.0); Mean Platelet Volume 9.3 fL (9.4-12.4); Platelet Count 201 K/mcL (140-400); Red Cell Distribution Width 13.7 % (11.5-14.5); White Blood Count 7.3 K/mcL (4.3-11.1)
[2021-07-22] MEDS: Pantoprazole 40 MG in 0.9 % Sodium Chloride Mini Bag 100 ML IVC SCH ×6 (04:58→19:39)
[2021-07-22] MEDS: Nicotine 21 MG PATCH.TD24 TD SCH (05:00)
[2021-07-22] MEDS: *HR* HYDROcodone/Acet 5/325 mg TABLET PO PRN (05:01)
[2021-07-22 05:05] LABS: BUN/Creatinine Ratio 9 (6-26); Blood Urea Nitrogen 3 mg/dL (6-20); Calcium 7.1 mg/dL (8.6-10.3); Carbon Dioxide 34 mEq/L (23-29); Chloride 89 mEq/L (98-107); Glucose 110 mg/dL (70-105); Magnesium 1.4 mg/dL (1.6-2.6); Osmolality,Calculated 267 (280-300); Phosphorous 1.6 mg/dL (2.7-4.5); Potassium 2.5 mEq/L (3.5-5.1); Sodium 130 mEq/L (136-145); eGFR For African Americans > 60 (> 60); eGFR For Non-African Americans > 60 (> 60)
[2021-07-22] MEDS ORDERED: Potassium Phosphate 44 MEQ in 0.9 % Sodium Chloride 250 ML IVPB ONE (05:45)
[2021-07-22] MEDS ORDERED: Potassium Chloride Elixir 20 MEQ/15 ML UDC PO ONE (07:27)
[2021-07-22] MEDS: Thiamine (B-1) 100 MG TABLET PO SCH (07:45)
[2021-07-22] MEDS: Folic Acid 1 MG TABLET PO SCH (07:46)
[2021-07-22] MEDS: cefTRIAXone 1,000 MG in Water for inj. (sterile) 10 ML IVP SCH (07:46)
[2021-07-22] MEDS: Cholecalciferol (D-3) 1,000 UNIT (25MCG) TABLET PO SCH (07:46)
[2021-07-22] MEDS: Iron Sucrose Complex 250 MG in 0.9 % Sodium Chloride 250 ML IVPB SCH (08:43)
[2021-07-22 10:33] LABS: BUN/Creatinine Ratio 10 (6-26); Blood Urea Nitrogen 4 mg/dL (6-20); Calcium 6.7 mg/dL (8.6-10.3); Carbon Dioxide 32 mEq/L (23-29); Chloride 92 mEq/L (98-107); Glucose 201 mg/dL (70-105); Osmolality,Calculated 275 (280-300); Potassium 2.9 mEq/L (3.5-5.1); Sodium 131 mEq/L (136-145); eGFR For African Americans > 60 (> 60); eGFR For Non-African Americans > 60 (> 60)
[2021-07-22] MEDS: Octreotide 400 MCG in 0.9 % Sodium Chloride 100 ML IVC SCH ×3 (10:57→21:33)
[2021-07-23] MEDS: Pantoprazole 40 MG in 0.9 % Sodium Chloride Mini Bag 100 ML IVC SCH (01:14)
[2021-07-23] MEDS: Nicotine 21 MG PATCH.TD24 TD SCH (04:44)
[2021-07-23 04:48] LABS: Hematocrit 22.8 % (37.5-50.1); Hemoglobin 7.3 g/dL (12.9-16.9); Mean Corpuscular Hemoglobin 31.7 pg (28.0-33.3); Mean Corpuscular Volume 99.1 fL (83.0-100.0); Platelet Count 188 K/mcL (140-400); Red Cell Distribution Width 14.3 % (11.5-14.5); White Blood Count 7.5 K/mcL (4.3-11.1)
[2021-07-23 04:59] LABS: INR 1.1; Prothrombin Time 11.8 Seconds (9.4-12.1)
[2021-07-23] MEDS: Octreotide 400 MCG in 0.9 % Sodium Chloride 100 ML IVC SCH (05:26)
[2021-07-23 05:32] LABS: Albumin/Globulin Ratio 1.1 (1.1-2.2); Bilirubin,Direct 0.3 mg/dL (0.0-0.2); Bilirubin,Indirect 0.4 mg/dL (0.0-1.0); Bilirubin,Total 0.7 mg/dL (0.3-1.0); Globulin 1.9 g/dL (2.4-3.5); Total Protein 3.9 g/dL (6.4-8.9)
[2021-07-23 05:40] LABS: BUN/Creatinine Ratio 10 (6-26); Blood Urea Nitrogen 3 mg/dL (6-20); Calcium 6.8 mg/dL (8.6-10.3); Carbon Dioxide 34 mEq/L (23-29); Chloride 94 mEq/L (98-107); Glucose 123 mg/dL (70-105); Magnesium 1.9 mg/dL (1.6-2.6); Osmolality,Calculated 270 (280-300); Phosphorous 1.9 mg/dL (2.7-4.5); Potassium 2.4 mEq/L (3.5-5.1); Sodium 131 mEq/L (136-145); eGFR For African Americans > 60 (> 60); eGFR For Non-African Americans > 60 (> 60)
[2021-07-23] MEDS ORDERED: Potassium Chloride Elixir 20 MEQ/15 ML UDC PO ONE ×3 (05:53→07:31)
[2021-07-23] MEDS ORDERED: Potassium Phosphate 44 MEQ in 0.9 % Sodium Chloride 250 ML IVPB ONE (06:30)
[2021-07-23 07:04] LABS: VBG Ionized Calcium 0.98 mmol/L (1.15-1.35)
[2021-07-23 07:33] LABS: BUN/Creatinine Ratio 9 (6-26); Blood Urea Nitrogen 3 mg/dL (6-20); Carbon Dioxide 33 mEq/L (23-29); Chloride 93 mEq/L (98-107); Glucose 157 mg/dL (70-105); Osmolality,Calculated 272 (280-300); Potassium 2.4 mEq/L (3.5-5.1); Sodium 131 mEq/L (136-145); eGFR For African Americans > 60 (> 60); eGFR For Non-African Americans > 60 (> 60)
[2021-07-23] MEDS: Piperacillin/Tazobactam 3.375 GM in 0.9 % Sodium Chloride Mini Bag 100 ML IVPB SCH ×2 (09:39→16:21)
[2021-07-23] MEDS: Iron Sucrose Complex 250 MG in 0.9 % Sodium Chloride 250 ML IVPB SCH (09:39)
[2021-07-23] MEDS: Cholecalciferol (D-3) 1,000 UNIT (25MCG) TABLET PO SCH (09:40)
[2021-07-23] MEDS: Folic Acid 1 MG TABLET PO SCH (09:41)
[2021-07-23] MEDS: Thiamine (B-1) 100 MG TABLET PO SCH (09:41)
[2021-07-23 11:08] LABS: Adenovirus Not Detected (Not Detect); Bordetella Pertussis Not Detected (Not Detect); Chlamydophila pneumoniae Not Detected (Not Detect); Coronavirus 229E Not Detected (Not Detect); Coronavirus HKU1 Not Detected (Not Detect); Coronavirus NL63 Not Detected (Not Detect); Coronavirus OC43 Not Detected (Not Detect); Human Metapneumovirus Not Detected (Not Detect); Human Rhinovirus/Enterovirus Not Detected (Not Detect); Influenza A Subtype 2009 H1 Not Detected (Not Detect); Influenza B Not Detected (Not Detect); Mycoplasma pneumoniae Not Detected (Not Detect); Parainfluenza Virus 1 Not Detected (Not Detect); Parainfluenza Virus 2 Not Detected (Not Detect); Parainfluenza Virus 3 Not Detected (Not Detect); Parainfluenza Virus 4 Not Detected (Not Detect); Respiratory Syncytial Virus Not Detected (Not Detect); SARS-CoV-2 Not Detected (Not Detect)
[2021-07-23] MEDS: Lactulose Oral Soln 20 GM/30 ML UDC PO SCH (21:07)
[2021-07-24] MEDS: Piperacillin/Tazobactam 3.375 GM in 0.9 % Sodium Chloride Mini Bag 100 ML IVPB SCH ×4 (00:49→23:45)
[2021-07-24] MEDS: Nicotine 21 MG PATCH.TD24 TD SCH (03:31)
[2021-07-24 05:38] LABS: Basophils % 0.2 %; Eosinophils # 0.1 K/mcL (0.0-0.6); Eosinophils % 0.8 %; Hematocrit 20.1 % (37.5-50.1); Hemoglobin 6.3 g/dL (12.9-16.9); Immature Granulocytes % 0.9 % (0-4); Lymphocytes # 0.9 K/mcL (0.6-4.6); Lymphocytes % 13.9 %; Mean Corpuscular HGB Conc 31.3 g/dL (31.6-35.5); Mean Corpuscular Hemoglobin 32.1 pg (28.0-33.3); Mean Corpuscular Volume 102.6 fL (83.0-100.0); Mean Platelet Volume 9.6 fL (9.4-12.4); Monocytes % 15.4 %; Neutrophils # 4.4 K/mcL (1.6-8.9); Nucleated Red Blood Cells 0.5 /100 WBC (0); Platelet Count 189 K/mcL (140-400); Red Blood Count 1.96 M/mcL (4.19-5.50); Segmented Neutrophils % 68.8 %; White Blood Count 6.4 K/mcL (4.3-11.1)
[2021-07-24 06:05] LABS: Alanine Aminotransferase 12 Units/L (7-52); Alkaline Phosphatase 32 Units/L (34-104); Aspartate Amino Transferase 19 Units/L (13-39); BUN/Creatinine Ratio 9 (6-26); Bilirubin,Total 0.7 mg/dL (0.3-1.0); Blood Urea Nitrogen 4 mg/dL (6-20); Calcium 7.3 mg/dL (8.6-10.3); Carbon Dioxide 32 mEq/L (23-29); Chloride 98 mEq/L (98-107); Glucose 99 mg/dL (70-105); Magnesium 1.9 mg/dL (1.6-2.6); Osmolality,Calculated 275 (280-300); Phosphorous 2.5 mg/dL (2.7-4.5); Potassium 3.3 mEq/L (3.5-5.1); Sodium 134 mEq/L (136-145); eGFR For African Americans > 60 (> 60); eGFR For Non-African Americans > 60 (> 60)
[2021-07-24] MEDS ORDERED: 0.9 % Sodium Chloride 250 ML IVC SCH (06:15)
[2021-07-24] MEDS: Lactulose Oral Soln 20 GM/30 ML UDC PO SCH ×2 (09:20→20:19)
[2021-07-24] MEDS: Cholecalciferol (D-3) 1,000 UNIT (25MCG) TABLET PO SCH (09:20)
[2021-07-24] MEDS: Thiamine (B-1) 100 MG TABLET PO SCH (09:20)
[2021-07-24] MEDS: Cyanocobalamin (B-12) 1,000 MCG TABLET PO SCH (09:20)
[2021-07-24] MEDS: Folic Acid 1 MG TABLET PO SCH (09:20)
[2021-07-24] MEDS: Iron Sucrose Complex 250 MG in 0.9 % Sodium Chloride 250 ML IVPB SCH (09:21)
[2021-07-24] MEDS ORDERED: 0.9 % Sodium Chloride 250 ML ONE (09:33)
[2021-07-24] MEDS ORDERED: Potassium Chloride Elixir 20 MEQ/15 ML UDC PO ONE (12:01)
[2021-07-25 02:58] LABS: Hematocrit 22.9 % (37.5-50.1); Hemoglobin 7.6 g/dL (12.9-16.9); Mean Corpuscular HGB Conc 33.2 g/dL (31.6-35.5); Mean Corpuscular Hemoglobin 32.9 pg (28.0-33.3); Mean Corpuscular Volume 99.1 fL (83.0-100.0); Mean Platelet Volume 9.8 fL (9.4-12.4); Platelet Count 200 K/mcL (140-400); Red Blood Count 2.31 M/mcL (4.19-5.50); Red Cell Distribution Width 16.7 % (11.5-14.5); White Blood Count 6.3 K/mcL (4.3-11.1)
[2021-07-25 03:13] LABS: BUN/Creatinine Ratio 9 (6-26); Blood Urea Nitrogen 4 mg/dL (6-20); Calcium 7.3 mg/dL (8.6-10.3); Carbon Dioxide 29 mEq/L (23-29); Chloride 100 mEq/L (98-107); Glucose 95 mg/dL (70-105); Magnesium 1.5 mg/dL (1.6-2.6); Osmolality,Calculated 283 (280-300); Phosphorous 3.1 mg/dL (2.7-4.5); Potassium 2.7 mEq/L (3.5-5.1); Sodium 138 mEq/L (136-145); eGFR For African Americans > 60 (> 60); eGFR For Non-African Americans > 60 (> 60)
[2021-07-25] MEDS: Nicotine 21 MG PATCH.TD24 TD SCH (06:31)
[2021-07-25] MEDS: Piperacillin/Tazobactam 3.375 GM in 0.9 % Sodium Chloride Mini Bag 100 ML IVPB SCH (07:17)
[2021-07-25] MEDS ORDERED: Potassium Chloride Elixir 20 MEQ/15 ML UDC PO ONE (07:32)
[2021-07-25] MEDS: Thiamine (B-1) 100 MG TABLET PO SCH (08:32)
[2021-07-25] MEDS: Cholecalciferol (D-3) 1,000 UNIT (25MCG) TABLET PO SCH (08:32)
[2021-07-25] MEDS: Cyanocobalamin (B-12) 1,000 MCG TABLET PO SCH (08:32)
[2021-07-25] MEDS: Folic Acid 1 MG TABLET PO SCH (08:33)
[2021-07-25] MEDS: Lactulose Oral Soln 20 GM/30 ML UDC PO SCH (08:33)
[2021-07-25 10:10] LABS: % Iron Saturation 12 % (20-55); Transferrin 118 mg/dL (200-400)
[2021-07-25 10:51] VITALS: PULSE 90; TEMP 98.4; O2SAT 100
[2021-07-25 11:56] VITALS: BP 129/68
== END 2021-07-25 16:20 | disposition home or self-care (01) | DRG 377 ==
LOC: EMEROOARM 19:05 → 2NENU 19:05 → SUATTDRO 22:02 → 2NENU 22:40
PROVIDERS: ADMIT Internal Medicine; ATTEND Internal Medicine
PROC: ENDOEBX (2021-07-20 15:00)